=== PATIENT | female | born 1950 | race Caucasian/White ===

== ENCOUNTER 2020-07-20 11:05 | Outpatient (REF) | payer MEDICARE, OTHER, SELFPAY ==
[2020-07-20 13:30] LABS: MANUAL DIFF FLAG NO
[2020-07-20 13:41] LABS: Basophils Absolute Auto 0.1 X10*3/uL (0.0-0.2); Basophils Percent Auto 0.8 % (0-2); Eosinophils Absolute Auto 0.5 X10*3/uL (0.0-0.4); Eosinophils Percent Auto 6.9 % (0-4); Hematocrit 43.8 % (37-47); Hemoglobin 14.5 g/dl (12.0-16.0); Imm Gran Abs Auto 0.03 X10*3/uL (0.00-0.03); Imm Gran Pct Auto 0.4 % (0.0-0.4); Lymphocytes Percent Auto 27.2 % (20-40); Mean Corpuscular HGB Conc 33.1 g/dl (31.0-35.0); Mean Corpuscular Volume 99.5 fL (80-98); Mean Platelet Volume 9.2 fL (9.4-12.3); Monocytes Percent Auto 12.7 % (2-11); Neutrophils Absolute Auto 3.9 X10*3/uL (2.0-8.3); Platelet Count 285 X10*3/uL (160-400); White Blood Count 7.5 X10*3/uL (4.8-10.8)
[2020-07-20 14:15] LABS: Alanine Aminotransferase 23 U/L (0-31); Albumin Level 4.4 g/dL (3.5-5.0); Alkaline Phosphatase 83 U/L (39-117); Anion Gap 12 (12-20); Aspartate Amino Transferase 21 U/L (5-31); Bilirubin Total 1.6 mg/dL (0.0-1.0); Blood Urea Nitrogen 25 mg/dL (9-16); Calcium 9.7 mg/dL (8.4-10.2); Carbon Dioxide 29 mmol/L (22-29); Chloride 104 mmol/L (96-108); Cholesterol 201 mg/dL; Estimated Glomerular Filt Rate > 60; Glucose Fasting 95 mg/dL (60-99); HDL Cholesterol 70 mg/dL; LDL Cholesterol Calculated 104 mg/dl; Potassium 4.2 mmol/L (3.3-5.1); Sodium 141 mmol/L (135-145); Total Protein 7.3 g/dL (6.5-8.0); Triglycerides 135 mg/dL
== END 2020-07-20 11:06 | disposition home or self-care (01) ==
LOC: HO.10HDL 11:05
PROVIDERS: Visit Provider Internal Medicine Medical Oncology
DX: I10 Essential (primary) hypertension (principal); E78.2 Mixed hyperlipidemia
CPT/HCPCS: 36415; 80053; 80061; 85025

== ENCOUNTER 2020-10-20 09:47 | Outpatient (REF) | payer MEDICARE, OTHER, SELFPAY ==
[2020-10-20 10:15] LABS: MANUAL DIFF FLAG NO
[2020-10-20 10:21] LABS: Basophils Absolute Auto 0.1 X10*3/uL (0.0-0.2); Basophils Percent Auto 0.9 % (0-2); Eosinophils Absolute Auto 0.5 X10*3/uL (0.0-0.4); Eosinophils Percent Auto 7.8 % (0-4); Hematocrit 43.8 % (37-47); Hemoglobin 14.5 g/dl (12.0-16.0); Imm Gran Abs Auto 0.03 X10*3/uL (0.00-0.03); Imm Gran Pct Auto 0.4 % (0.0-0.4); Lymphocytes Absolute Auto 1.8 X10*3/uL (1.2-4.9); Lymphocytes Percent Auto 25.7 % (20-40); Mean Corpuscular HGB Conc 33.1 g/dl (31.0-35.0); Mean Corpuscular Hemoglobin 32.4 pg (27.0-33.0); Mean Corpuscular Volume 97.8 fL (80-98); Mean Platelet Volume 8.7 fL (9.4-12.3); Monocytes Absolute Auto 0.9 X10*3/uL (0.1-1.2); Monocytes Percent Auto 12.9 % (2-11); Neutrophils Absolute Auto 3.6 X10*3/uL (2.0-8.3); Neutrophils Percent Auto 52.3 % (45-73); Platelet Count 281 X10*3/uL (160-400); Red Blood Count 4.48 X10*6/uL (4.20-5.50); Red Cell Distribution Width 11.9 % (11.0-16.0); White Blood Count 6.9 X10*3/uL (4.8-10.8)
[2020-10-20 10:46] LABS: Alanine Aminotransferase 31 U/L (0-31); Albumin Level 4.3 g/dL (3.5-5.0); Alkaline Phosphatase 69 U/L (39-117); Anion Gap 13 (12-20); Aspartate Amino Transferase 27 U/L (5-31); Bilirubin Total 1.4 mg/dL (0.0-1.0); Blood Urea Nitrogen 18 mg/dL (9-16); Calcium 9.3 mg/dL (8.4-10.2); Carbon Dioxide 29 mmol/L (22-29); Chloride 104 mmol/L (96-108); Cholesterol 221 mg/dL; Estimated Glomerular Filt Rate > 60; Glucose Fasting 109 mg/dL (60-99); HDL Cholesterol 68 mg/dL; LDL Cholesterol Calculated 128 mg/dl; Sodium 142 mmol/L (135-145); Total Protein 7.3 g/dL (6.5-8.0); Triglycerides 125 mg/dL
== END 2020-10-20 09:48 | disposition home or self-care (01) ==
LOC: HO.10HDL 09:47
PROVIDERS: PCP Internal Medicine Medical Oncology; Visit Provider Internal Medicine Medical Oncology
DX: I10 Essential (primary) hypertension (principal); E78.2 Mixed hyperlipidemia; R63.6 Underweight
CPT/HCPCS: 36415; 80053; 80061; 85025

== ENCOUNTER 2020-11-03 10:18 | Outpatient (REF) | payer MEDICARE, OTHER, SELFPAY ==
--- NOTE | ~2020-11-03 | MM_ITS ---
EXAMINATION: MM SCREENING DIGITAL BREAST TOMOSYNTHESIS, BILATERAL CLINICAL INFORMATION: Screening. Asymptomatic. The lifetime risk of breast cancer based on the Tyrer-Cuzick Model is 7%. COMPARISON: Mammography: 10/29/2019, 10/23/2018, 10/18/2017, 10/10/2017 TECHNIQUE: Digital breast tomosynthesis is performed in both the craniocaudal and mediolateral oblique views along with computer-aided detection (CAD). Synthesized 2D images are generated from the tomosynthesis. FINDINGS: There are scattered areas of fibroglandular density (ACR BI-RADS breast composition Category b). There are no significant masses, abnormal calcifications, or other abnormalities. Parenchymal pattern is similar to prior studies. There is no developing density. Scattered punctate calcifications are similar to prior exams. The axilla and skin contours are unremarkable. No significant changes. MM/MM tomosynthesis screening BI IMPRESSION: No mammographic evidence of malignancy. ASSESSMENT: BI-RADS 2: Benign RECOMMENDATION: Routine annual mammography screening. This patient's information was entered into a reminder system with a target due date for their next mammogram.
== END 2020-11-03 10:19 | disposition home or self-care (01) ==
LOC: HO.MAMMO 10:18
PROVIDERS: Visit Provider Internal Medicine Medical Oncology
DX: Z12.31 Encounter for screening mammogram for malignant neoplasm of breast (principal)
CPT/HCPCS: 77063; 77067

== ENCOUNTER 2021-08-10 08:38 | Outpatient (REF) | payer MEDICARE, OTHER, SELFPAY ==
[2021-08-10 11:45] LABS: MANUAL DIFF FLAG NO
[2021-08-10 11:50] LABS: Basophils Absolute Auto 0.1 X10*3/uL (0.0-0.2); Basophils Percent Auto 0.8 % (0-2); Eosinophils Absolute Auto 0.4 X10*3/uL (0.0-0.4); Eosinophils Percent Auto 6.3 % (0-4); Hematocrit 42.2 % (37.0-47.0); Hemoglobin 14.1 g/dl (12.0-16.0); Imm Gran Abs Auto 0.03 X10*3/uL (0.00-0.03); Imm Gran Pct Auto 0.5 % (0.0-0.4); Lymphocytes Absolute Auto 1.9 X10*3/uL (1.2-4.9); Lymphocytes Percent Auto 29.1 % (20-40); Mean Corpuscular HGB Conc 33.4 g/dl (31.0-35.0); Mean Corpuscular Hemoglobin 33.6 pg (27.0-33.0); Mean Corpuscular Volume 100.5 fL (80.0-98.0); Monocytes Absolute Auto 0.9 X10*3/uL (0.1-1.2); Monocytes Percent Auto 14.8 % (2-11); Neutrophils Absolute Auto 3.1 x10*3/uL (2.0-8.3); Neutrophils Percent Auto 48.5 % (45-73); Platelet Count 270 X10*3/uL (160-400); Red Cell Distribution Width 12.1 % (11.0-16.0); White Blood Count 6.4 X10*3/uL (4.8-10.8)
[2021-08-10 12:12] LABS: Alanine Aminotransferase 18 U/L (0-31); Albumin Level 4.2 g/dL (3.5-5.0); Alkaline Phosphatase 82 U/L (39-117); Anion Gap 12 (12-20); Aspartate Amino Transferase 21 U/L (5-31); Bilirubin Total 1.2 mg/dL (0.0-1.0); Blood Urea Nitrogen 12 mg/dL (9-16); Carbon Dioxide 27 mmol/L (22-29); Chloride 106 mmol/L (96-108); Cholesterol 185 mg/dL; Estimated Glomerular Filt Rate > 60; Glucose Fasting 107 mg/dL (60-99); HDL Cholesterol 62 mg/dL; LDL Cholesterol Calculated 105 mg/dl; Sodium 141 mmol/L (135-145); Triglycerides 93 mg/dL
== END 2021-08-10 08:39 | disposition home or self-care (01) ==
LOC: HO.HMGCLDS 08:38
PROVIDERS: PCP Internal Medicine Medical Oncology; Visit Provider Internal Medicine Medical Oncology
DX: I10 Essential (primary) hypertension (principal); E78.2 Mixed hyperlipidemia; R63.6 Underweight
CPT/HCPCS: 36415; 80053; 80061; 85025

== ENCOUNTER 2021-11-05 09:47 | Outpatient (REF) | payer MEDICARE, OTHER, SELFPAY ==
--- NOTE | ~2021-11-05 | MM_ITS ---
EXAMINATION: MM SCREENING DIGITAL BREAST TOMOSYNTHESIS, BILATERAL CLINICAL INFORMATION: Screening. Asymptomatic. The lifetime risk of breast cancer based on the Tyrer-Cuzick Model is 6%. COMPARISON: Mammography: 11/03/2020, 10/29/2019, 10/23/2018, 10/10/2017 TECHNIQUE: Digital breast tomosynthesis is performed in both the craniocaudal and mediolateral oblique views along with computer-aided detection (CAD). Synthesized 2D images are generated from the tomosynthesis. FINDINGS: There are scattered areas of fibroglandular density (ACR BI-RADS breast composition Category b). There are no significant masses, abnormal calcifications, or other abnormalities. Parenchymal pattern is similar to prior studies. There is no developing density or architectural abnormality. The axilla and skin contours are unremarkable. No significant changes. MM/MM tomosynthesis screening BI IMPRESSION: No mammographic evidence of malignancy. ASSESSMENT: BI-RADS 1: Negative RECOMMENDATION: Routine annual mammography screening. This patient's information was entered into a reminder system with a target due date for their next mammogram.
== END 2021-11-05 09:48 | disposition home or self-care (01) ==
LOC: HO.MAMMO 09:47
PROVIDERS: PCP Internal Medicine Medical Oncology; Visit Provider Internal Medicine Medical Oncology
DX: Z12.31 Encounter for screening mammogram for malignant neoplasm of breast (principal)
CPT/HCPCS: 77063; 77067

== ENCOUNTER 2022-10-12 10:04 | Outpatient (REF) | payer MEDICARE, OTHER, SELFPAY ==
[2022-10-12 11:21] LABS: MANUAL DIFF FLAG NO
[2022-10-12 11:32] LABS: Basophils Absolute Auto 0.1 X10*3/uL (0.0-0.2); Eosinophils Absolute Auto 0.5 X10*3/uL (0.0-0.4); Eosinophils Percent Auto 5.6 % (0-4); Hematocrit 41.6 % (37.0-47.0); Hemoglobin 14.1 g/dl (12.0-16.0); Imm Gran Abs Auto 0.04 X10*3/uL (0.00-0.03); Imm Gran Pct Auto 0.5 % (0.0-0.4); Lymphocytes Absolute Auto 1.9 X10*3/uL (1.2-4.9); Lymphocytes Percent Auto 22.9 % (20-40); Mean Corpuscular HGB Conc 33.9 g/dl (31.0-35.0); Mean Corpuscular Volume 100.2 fL (80.0-98.0); Mean Platelet Volume 9.1 fL (9.4-12.3); Monocytes Absolute Auto 1.1 X10*3/uL (0.1-1.2); Monocytes Percent Auto 13.3 % (2-11); Neutrophils Absolute Auto 4.6 x10*3/uL (2.0-8.3); Neutrophils Percent Auto 56.7 % (45-73); Platelet Count 254 X10*3/uL (160-400); Red Blood Count 4.15 X10*6/uL (4.20-5.50); Red Cell Distribution Width 12.4 % (11.0-16.0); White Blood Count 8.2 X10*3/uL (4.8-10.8)
[2022-10-12 12:32] LABS: Alanine Aminotransferase 23 U/L (0-31); Albumin Level 4.3 g/dL (3.5-5.0); Alkaline Phosphatase 73 U/L (39-117); Anion Gap 14 (12-20); Aspartate Amino Transferase 22 U/L (5-31); Bilirubin Total 1.7 mg/dL (0.0-1.0); Blood Urea Nitrogen 20 mg/dL (9-16); Calcium 9.3 mg/dL (8.4-10.2); Carbon Dioxide 26 mmol/L (22-29); Chloride 105 mmol/L (96-108); Cholesterol 206 mg/dL; Estimated Glomerular Filt Rate > 60; Glucose Random 90 mg/dL (60-115); HDL Cholesterol 75 mg/dL; LDL Cholesterol Calculated 104 mg/dl; Potassium 3.5 mmol/L (3.3-5.1); Sodium 141 mmol/L (135-145); Total Protein 7.6 g/dL (6.5-8.0); Triglycerides 137 mg/dL
== END 2022-10-12 10:05 | disposition home or self-care (01) ==
LOC: HO.WFDLDS 10:04
PROVIDERS: Visit Provider Internal Medicine Medical Oncology
DX: E78.2 Mixed hyperlipidemia (principal); I10 Essential (primary) hypertension; R63.6 Underweight
CPT/HCPCS: 36415; 80053; 80061; 85025

== ENCOUNTER 2022-11-07 08:47 | Outpatient (REF) | payer MEDICARE, OTHER, SELFPAY | END 2022-11-07 08:48 | disposition home or self-care (01) | LOC: HO.MAMMO 08:47 | PROVIDERS: PCP Internal Medicine Medical Oncology; Visit Provider Internal Medicine Medical Oncology | DX: Z12.31 Encounter for screening mammogram for malignant neoplasm of breast (principal) | CPT/HCPCS: 77063; 77067 ==

== ENCOUNTER → 2022-11-07 09:00 | Outpatient (BNV) | payer MEDICARE, OTHER, SELFPAY | PROVIDERS: PCP Internal Medicine Medical Oncology; Visit Provider Radiology Diagnostic Radiology | DX: Z12.31 Encounter for screening mammogram for malignant neoplasm of breast (principal) | CPT/HCPCS: 77063; 77067 ==

== ENCOUNTER 2023-07-26 09:47 | Outpatient (REF) | payer MEDICARE, OTHER, SELFPAY ==
[2023-07-26 11:46] LABS: MANUAL DIFF FLAG NO
[2023-07-26 11:49] LABS: Basophils Absolute Auto 0.1 X10*3/uL (0.0-0.2); Basophils Percent Auto 0.8 % (0-2); Eosinophils Absolute Auto 0.5 X10*3/uL (0.0-0.4); Hematocrit 43.7 % (37.0-47.0); Hemoglobin 14.7 g/dl (12.0-16.0); Imm Gran Abs Auto 0.04 X10*3/uL (0.00-0.03); Imm Gran Pct Auto 0.6 % (0.0-0.4); Lymphocytes Absolute Auto 1.7 X10*3/uL (1.2-4.9); Lymphocytes Percent Auto 23.5 % (20-40); Mean Corpuscular HGB Conc 33.6 g/dl (31.0-35.0); Mean Corpuscular Hemoglobin 33.3 pg (27.0-33.0); Mean Corpuscular Volume 99.1 fL (80.0-98.0); Mean Platelet Volume 9.1 fL (9.4-12.3); Monocytes Percent Auto 13.8 % (2-11); Neutrophils Absolute Auto 3.9 x10*3/uL (2.0-8.3); Neutrophils Percent Auto 54.3 % (45-73); Platelet Count 285 X10*3/uL (160-400); Red Blood Count 4.41 X10*6/uL (4.20-5.50); Red Cell Distribution Width 11.7 % (11.0-16.0); White Blood Count 7.1 X10*3/uL (4.8-10.8)
[2023-07-26 12:51] LABS: Alanine Aminotransferase 24 U/L (0-31); Albumin Level 4.3 g/dL (3.5-5.0); Alkaline Phosphatase 74 U/L (39-117); Anion Gap 15 (12-20); Aspartate Amino Transferase 26 U/L (5-31); Bilirubin Total 1.8 mg/dL (0.0-1.0); Blood Urea Nitrogen 17 mg/dL (9-16); Calcium 9.6 mg/dL (8.4-10.2); Carbon Dioxide 28 mmol/L (22-29); Chloride 103 mmol/L (96-108); Cholesterol 198 mg/dL (<200); Estimated Glomerular Filt Rate > 60; Glucose Fasting 81 mg/dL (60-99); HDL Cholesterol 62 mg/dL (>40); LDL Cholesterol Calculated 104 mg/dL (<100); Potassium 3.6 mmol/L (3.3-5.1); Sodium 142 mmol/L (135-145); Total Protein 7.5 g/dL (6.5-8.0); Triglycerides 164 mg/dL (<150)
== END 2023-07-26 09:48 | disposition home or self-care (01) ==
LOC: HO.WFDLDS 09:47
PROVIDERS: Visit Provider Internal Medicine Medical Oncology
DX: I10 Essential (primary) hypertension (principal); E78.2 Mixed hyperlipidemia; R63.6 Underweight
CPT/HCPCS: 36415; 80053; 80061; 85025

== ENCOUNTER 2023-11-06 10:26 | Outpatient (REF) | payer MEDICARE, OTHER, SELFPAY ==
[2023-11-06 14:27] LABS: MANUAL DIFF FLAG NO
[2023-11-06 14:42] LABS: Basophils Absolute Auto 0.1 X10*3/uL (0.0-0.2); Basophils Percent Auto 0.7 % (0-2); Eosinophils Absolute Auto 0.6 X10*3/uL (0.0-0.4); Eosinophils Percent Auto 7.7 % (0-4); Hematocrit 44.7 % (37.0-47.0); Hemoglobin 14.6 g/dl (12.0-16.0); Imm Gran Abs Auto 0.05 X10*3/uL (0.00-0.03); Imm Gran Pct Auto 0.7 % (0.0-0.4); Lymphocytes Absolute Auto 2.1 X10*3/uL (1.2-4.9); Lymphocytes Percent Auto 27.7 % (20-40); Mean Corpuscular HGB Conc 32.7 g/dl (31.0-35.0); Mean Corpuscular Hemoglobin 33.1 pg (27.0-33.0); Mean Corpuscular Volume 101.4 fL (80.0-98.0); Mean Platelet Volume 9.2 fL (9.4-12.3); Monocytes Percent Auto 13.3 % (2-11); Neutrophils Absolute Auto 3.7 x10*3/uL (2.0-8.3); Neutrophils Percent Auto 49.9 % (45-73); Platelet Count 268 X10*3/uL (160-400); Red Blood Count 4.41 X10*6/uL (4.20-5.50); Red Cell Distribution Width 12.4 % (11.0-16.0); White Blood Count 7.5 X10*3/uL (4.8-10.8)
[2023-11-06 15:07] LABS: Alanine Aminotransferase 33 U/L (0-31); Albumin Level 4.3 g/dL (3.5-5.0); Alkaline Phosphatase 79 U/L (39-117); Anion Gap 16 (12-20); Aspartate Amino Transferase 39 U/L (5-31); Bilirubin Total 1.6 mg/dL (0.0-1.0); Blood Urea Nitrogen 19 mg/dL (9-16); Calcium 10.5 mg/dL (8.4-10.2); Carbon Dioxide 27 mmol/L (22-29); Chloride 105 mmol/L (96-108); Cholesterol 173 mg/dL (<200); Estimated Glomerular Filt Rate > 60; Glucose Fasting 92 mg/dL (60-99); HDL Cholesterol 62 mg/dL (>40); LDL Cholesterol Calculated 78 mg/dL (<100); Potassium 3.6 mmol/L (3.3-5.1); Sodium 144 mmol/L (135-145); Total Protein 7.6 g/dL (6.5-8.0); Triglycerides 167 mg/dL (<150)
[2023-11-06 15:10] LABS: Vitamin D 25-OH Total 38.4 ng/mL (>30)
== END 2023-11-06 10:27 | disposition home or self-care (01) ==
LOC: HO.WFDLDS 10:26
PROVIDERS: Visit Provider Internal Medicine Medical Oncology
DX: I10 Essential (primary) hypertension (principal); E78.2 Mixed hyperlipidemia; R63.6 Underweight; E55.9 Vitamin D deficiency, unspecified
CPT/HCPCS: 36415; 80053; 80061; 82306; 85025

== ENCOUNTER 2023-11-14 09:07 | Outpatient (REF) | payer MEDICARE, OTHER, SELFPAY ==
--- NOTE | ~2023-11-14 | MM_ITS ---
EXAMINATION: BONE DENSITOMETRY CLINICAL INDICATION: Osteopenia. COMPARISON: This is the patient's baseline examination. TECHNIQUE: Using a [employer] DXA System (software version: 13.1) manufactured by [employer], dual-energy x-ray absorptiometry was performed of the lumbar spine and left hip. The images are of good technical quality. Summary results are attached. FINDINGS: LEFT FEMUR, NECK: BMD 0.598 g/cm2, Z-score -1.0, T-score -3.2, osteoporosis. LEFT FEMUR, TOTAL: BMD 0.570 g/cm2, Z-score -1.5, T-score -3.5, osteoporosis. AP SPINE L1-L4: BMD 0.687 g/cm2, Z-score -2.0, T-score -4.1, osteoporosis. IDENTIFIED RISK FACTORS: Menopause, hysterectomy, bilateral oophorectomy. HISTORY OF FRACTURE: None listed. MEDICATIONS: Calcium. MM/XR DEXA axial skeleton IMPRESSION: 1. DIAGNOSIS: Osteoporosis based on the lowest T-score value of -4.1 in the lumbar spine applying World Health Organization criteria. 2. 10-YEAR FRACTURE RISK PREDICTION, FRAX: According to the guidelines, FRAX calculation should only be performed on patients in the osteopenia bone density category. Therefore, FRAX was not performed on this patient. 3. Treatment Recommendations: NOF guidelines recommend consideration for treatment in postmenopausal women and men age 50 and older presenting with the following: -A hip or vertebral (clinical or morphometric) fracture. -T-score less than or equal to -2.5 at the femoral neck or spine after appropriate evaluation to exclude secondary causes. -Low bone mass at the hip or spine and a 10-year fracture probability by FRAX of greater than or equal to 3% for hip fracture or greater than or equal to 20% for major osteoporotic fracture based on the [place] adapted WHO algorithm. 4. Other Recommendations: All treatment decisions require clinical judgment and consideration of individual patient factors, including patient preferences, comorbidities, previous drug use, risk factors not captured in the FRAX model (e.g. frailty, falls, vitamin D deficiency, increased bone turnover, interval significant decline in bone density) and possible under or overestimation of fracture risk by FRAX. Additional medical evaluation for secondary cause of low bone mineral density may be appropriate. FUTURE SCAN RECOMMENDATION: People with diagnosed cases of osteoporosis or at high risk for fracture should have regular bone mineral density tests. For patients eligible for Medicare, routine testing is allowed once every 2 years. The testing frequency can be increased to one year for patients who have rapidly progressing disease, those who are receiving or discontinuing medical therapy to restore bone mass, or have additional risk factors. Electronically signed by: Jasson Last MD 11/15/2023 03:08 PM LUCIANO RP
--- NOTE | ~2023-11-14 | MM_ITS ---
EXAMINATION: MM SCREENING DIGITAL BREAST TOMOSYNTHESIS, BILATERAL CLINICAL INFORMATION: Screening. Asymptomatic. COMPARISON: Mammography: Comparison is made with available priors TECHNIQUE: Digital breast mammography with tomosynthesis is performed in both the craniocaudal and mediolateral oblique views along with computer-aided detection (CAD). FINDINGS: The breasts are heterogeneously dense, which may obscure small masses (ACR BI-RADS breast composition Category c). Postsurgical changes in the right breast are stable. There are no significant masses, abnormal calcifications, or other abnormalities. MM/MM tomosynthesis screening BI IMPRESSION: No mammographic evidence of malignancy. ASSESSMENT: BI-RADS BI-RADS 2 - Benign Findings RECOMMENDATION: Routine annual mammography screening. 1 year F/U This examination should not preclude the clinical evaluation of a suspicious palpable abnormality. This patient's information was entered into a reminder system with a target due date for their next mammogram. Electronically signed by: Merry Bowers DO 11/27/2023 04:07 PM EDT
== END 2023-11-14 09:08 | disposition home or self-care (01) ==
LOC: HO.MAMMO 09:07
PROVIDERS: PCP Internal Medicine Medical Oncology; Visit Provider Internal Medicine Medical Oncology
DX: Z12.31 Encounter for screening mammogram for malignant neoplasm of breast (principal); Z13.820 Encounter for screening for osteoporosis; Z78.0 Asymptomatic menopausal state; M85.89 Other specified disorders of bone density and structure, multiple sites
CPT/HCPCS: 77063; 77067; 77080

== ENCOUNTER → 2023-11-14 09:30 | Outpatient (BNV) | payer MEDICARE, OTHER, SELFPAY | PROVIDERS: PCP Internal Medicine Medical Oncology; Visit Provider Internal Medicine | DX: Z12.31 Encounter for screening mammogram for malignant neoplasm of breast (principal) | CPT/HCPCS: 77063; 77067 ==

== ENCOUNTER 2024-07-30 09:48 | Outpatient (REF) | payer MEDICARE, OTHER, SELFPAY ==
--- OUTSIDE RECORDS SUMMARY | 2024-07-30 11:00 | XMS_ITS | Patient Health Record ---
Author Organization Yung Delgado III, MD Address [address] [place] [address] [address] [place] [address] Care Team Providers Care Learn To Swim Instructor Name Role Phone Yung Delgado Primary Care Provider Allergies Allergen (clinical drug ingredient) Drug/Non Drug Allergy documented on EMR Reaction Allergy Type Onset Date Status No Known Drug Allergy Unknown Drug Allergy Active Results Component Value Reference Range Notes URINE DIP STICK Reviewed date:08/01/2023 02:15:35 PM Interpretation: Performing Lab: Notes/Report: SG 1.020 1.005 - 1.025 pH 6.0 5.0 - 9.0 GENOVEVA 70 Negative - NIT Negative Negative - PRO 15 Negative - Trace GLU Negative Negative - KET Negative Negative - UBG 0.2 0.1 - 1.8 MIGUEL ANGEL Negative 0.2 - 1.3 BLD Negative Negative - Complete Blood Count Auto Di ff Reviewed date:11/12/2023 07:29:20 AM Interpretation: Performing Lab:[facility], [address] [place] [phone] Notes/Report: White Blood Count 7.5 4.8-10.8 X10*3/uL Red Blood Count 4.41 4.20-5.50 X10*6/uL Hemoglobin 14.6 12.0-16.0 g/dl Hematocrit 44.7 37.0-47.0 % Mean Corpuscular Volume 101.4 80.0-98.0 fL Mean Corpuscular Hemoglobin 33.1 27.0-33.0 pg Mean Corpuscular HGB Conc 32.7 31.0-35.0 g/dl Red Cell Distribution Width 12.4 11.0-16.0 % Platelet Count 268 160-400 X10*3/uL Mean Platelet Volume 9.2 9.4-12.3 fL Neutrophils Percent Auto 49.9 45-73 % Imm Gran Pct Auto 0.7 0.0-0.4 % Lymphocytes Percent Auto 27.7 20-40 % Monocytes Percent Auto 13.3 2-11 % Eosinophils Percent Auto 7.7 0-4 % Basophils Percent Auto 0.7 0-2 % NRBC Pct Auto 0.0 0.0-0.2 /100WBC Neutrophils Absolute Auto 3.7 2.0-8.3 x10*3/uL Imm Gran Abs Auto 0.05 0.00-0.03 X10*3/uL Lymphocytes Absolute Auto 2.1 1.2-4.9 X10*3/uL Monocytes Absolute Auto 1.0 0.1-1.2 X10*3/uL Eosinophils Absolute Auto 0.6 0.0-0.4 X10*3/uL Basophils Absolute Auto 0.1 0.0-0.2 X10*3/uL NRBC Abs Auto 0.000 0.0-0.012 X10*3/uL Comprehensive [place]. Panel Fa st Reviewed date:11/12/2023 07:29:20 AM Interpretation: Performing Lab:[facility], [address] [place] [phone] Notes/Report: Sodium 144 135-145 mmol/L Potassium 3.6 3.3-5.1 mmol/L Chloride 105 96-108 mmol/L Carbon Dioxide 27 22-29 mmol/L Anion Gap 16 12-20 Blood Urea Nitrogen 19 9-16 mg/dL Creatinine 0.86 0.5-1.4 mg/dL Estimated Glomerular Filt Rate > 60 NOTE: For -Finnish individuals, multiply the result by 1.210. Chronic Kidney Disease: Estimated GFR < 60 mL/min/1.73m2 Severe Kidney Disease: Estimated GFR < 15 mL/min/1.73m2 Glucose Fasting 92 60-99 mg/dL Calcium 10.5 8.4-10.2 mg/dL Bilirubin Total 1.6 0.0-1.0 mg/dL Aspartate Amino Transferase 39 5-31 U/L Alanine Aminotransferase 33 0-31 U/L Total Protein 7.6 6.5-8.0 g/dL Albumin Level 4.3 3.5-5.0 g/dL Alkaline Phosphatase 79 39-117 U/L Lipid Panel Reviewed date:11/12/2023 07:29:20 AM Interpretation: Performing Lab:[facility], [address] [place] [phone] Notes/Report: Triglycerides 167 <150 mg/dL Desirable Triglyceride: less than 150 mg/dL Borderline High Triglyceride 150-199 mg/dL High Triglyceride: 200-499 mg/dL Very High Triglyceride: greater than or equal to 5OO mg/dL Cholesterol 173 <200 mg/dL Desirable Cholesterol: less than 200 mg/dL Borderline High Cholesterol: 200-239 mg/dL High Cholesterol: greater than 239 mg/dL LDL Cholesterol Calculated 78 <100 mg/dL Desirable LDL: less than 100 mg/dL Near Optimal/Above Optimal LDL: 110-129 mg/dL Borderline High LDL: 130-159 mg/dL High LDL: 160-189 mg/dL Very High LDL: greater than or equal to 190 mg/dL HDL Cholesterol 62 >40 mg/dL Desirable HDL: greater than 40 mg/dL Note: This HDL assay may give artificially low results in patients with liver disease. Vitamin D 25-OH Total Reviewed date:11/12/2023 07:29:20 AM Interpretation: Performing Lab:[facility], [address] [place] [phone] Notes/Report: Vitamin D 25-OH Total 38.4 >30 ng/mL Health Based Reference Values* < 20 ng/mL Deficient 20-30 ng/mL Insufficient > 30 ng/mL Sufficient *Julio DOTY. N Engl J Med. 2007;357:266-280 Care must be taken in interpreting Vitamin D results from different laboratories and methodologies. Published data demonstrated that results from patients undergoing hemodialysis may show a negative bias when tested with various automated 25-OH vitamin D assays when compared to LC-MS/MS. When testing samples from patients whose predominant form of Vitamin D is Vitamin D2, such as patients receiving Vitamin D2 supplementation, results that are subtherapeutic should be confirmed with another method such as LC-MS/MS. MM tomosynthesis screening B I Reviewed date:03/05/2024 04:06:42 PM Interpretation: Performing Lab: Notes/Report: [address] [place] [address] Mammography Report Signed Patient: Dyan Wang MR#: [id number] : 1950 Acct:[id number] Age/Sex: 73 / F ADM Date: 11/14/23 Loc: HO.MAMMO Attending Dr: Yung Delgado MD Ordering Physician: Yung Delgado MD Results: 2Benign Findings Date of Service: 11/14/23 Follow Up: 1 Year From Orig [facility] Mammogram Procedure(s): MM tomosynthesis screening BI Accession Number(s): [id number] cc: Yung Delgado MD EXAMINATION: MM SCREENING DIGITAL BREAST TOMOSYNTHESIS, BILATERAL CLINICAL INFORMATION: Screening. Asymptomatic. COMPARISON: Mammography: Comparison is made with available priors TECHNIQUE: Digital breast mammography with tomosynthesis is performed in both the craniocaudal and mediolateral oblique views along with computer-aided detection (CAD). FINDINGS: The breasts are heterogeneously dense, which may obscure small masses (ACR BI-RADS breast composition Category c). Postsurgical changes in the right breast are stable. There are no significant masses, abnormal calcifications, or other abnormalities. MM/MM tomosynthesis screening BI IMPRESSION: No mammographic evidence of malignancy. ASSESSMENT: BI-RADS BI-RADS 2 - Benign Findings RECOMMENDATION: Routine annual mammography screening. 1 year F/U This examination should not preclude the clinical evaluation of a suspicious palpable abnormality. This patient's information was entered into a reminder system with a target due date for their next mammogram. Electronically signed by: Merry Bowers DO 11/27/2023 04:07 PM EDT Dictated By: Merry Bowers DO Signed By: <Electronically signed by Merry Bowers DO in OV> 11/27/23 1607 DD/ 0920 TD/TT: 11/14/23 0935 Distribution Designer: [address] [place] [address] Mammography Report Signed Patient: Dyan Wang MR#: [id number] : 1950 Acct:[id number] Age/Sex: 73 / F ADM Date: 11/14/23 Loc: HO.MAMMO Attending Dr: Yung Delgado MD Ordering Physician: Yung Delgado MD Results: 2Benign Findings Date of Service: 11/14/23 Follow Up: 1 Year From Orig ina Mammogram Procedure(s): MM tomosynthesis screening BI Accession Number(s): [id number] cc: Yung Delgado MD EXAMINATION: MM SCREENING DIGITAL BREAST TOMOSYNTHESIS, BILATERAL CLINICAL INFORMATION: Screening. Asymptomatic. COMPARISON: Mammography: Compari son is made with available priors TECHNIQUE: Digital breast mammography with tomosynthesis is performed in both the craniocaudal and mediolateral oblique views along with computer-aided detection (CAD). FINDINGS: The breasts are heterogeneously dense, which may obscure small masses (ACR BI-RADS breast composition Category c). Postsurgical changes in the right breast are stable. There are no significant masses, abnormal calcifications, or other abnormalities. MM/MM tomosynthesis screening BI IMPRESSION: No mammographic evidence of malignancy. ASSESSMENT: BI-RADS BI-RADS 2 - Benign Findings RECOMMENDATION: Routine annual mammography screening. 1 year F/U This examination isa uld not preclude the clinical evaluation of a suspicious palpable abnormality. This patient's information was entered into a reminder system with a target due date for their next mammogram. Electronically mara d by: Merry Bowers DO 11/27/2023 04:07 PM EDT Dictated By: Merry Bowers DO Signed By: <Electronically signed by Merry Bowers DO in OV> 11/27/23 1607 DD/ 0920 TD/TT: 11/14/23 0935 Distribution Designer: XR DEXA axial skeleton Reviewed date:03/05/2024 04:06:42 PM Interpretation: Performing Lab: Notes/Report: [facility] [address] [place] [address] [place] [address] Mammography Report Signed Patient: Dyan Wang MR#: [id number] : 1950 Acct:[id number] Age/Sex: 73 / F ADM Date: 11/14/23 Loc: HO.MAMMO Attending Dr: Yung Delgado MD Ordering Physician: Yung Delgado MD Results: Date of Service: 11/14/23 Follow Up: Procedure(s): XR DEXA axial skeleton Accession Number(s): [id number] cc: Yung Delgado MD EXAMINATION: BONE DENSITOMETRY CLINICAL INDICATION: Osteopenia. COMPARISON: This is the patient's baseline examination. TECHNIQUE: Using a [email or web address] DXA System (software version: 13.1) manufactured by [employer], dual-energy x-ray absorptiometry was performed of the lumbar spine and left hip. The images are of good technical quality. Summary results are attached. FINDINGS: LEFT FEMUR, NECK: BMD 0.598 g/cm2, Z-score -1.0, T-score -3.2, osteoporosis. LEFT FEMUR, TOTAL: BMD 0.570 g/cm2, Z-score -1.5, T-score -3.5, osteoporosis. AP SPINE L1-L4: BMD 0.687 g/cm2, Z-score -2.0, T-score -4.1, osteoporosis. IDENTIFIED RISK FACTORS: Menopause, hysterectomy, bilateral oophorectomy. HISTORY OF FRACTURE: None listed. MEDICATIONS: Calcium. MM/XR DEXA axial skeleton IMPRESSION: 1. DIAGNOSIS: Osteoporosis based on the lowest T-score value of -4.1 in the lumbar spine applying World Health Organization criteria. 2. 10-YEAR FRACTURE RISK PREDICTION, FRAX: According to the guidelines, FRAX calculation should only be performed on patients in the osteopenia bone density category. Therefore, FRAX was not performed on this patient. 3. Treatment Recommendations: NOF guidelines recommend consideration for treatment in postmenopausal women and men age 50 and older presenting with the following: -A hip or vertebral (clinical or morphometric) fracture. -T-score less than or equal to -2.5 at the femoral neck or spine after appropriate evaluation to exclude secondary causes. -Low bone mass at the hip or spine and a 10-year fracture probability by FRAX of greater than or equal to 3% for hip fracture or greater than or equal to 20% for major osteoporotic fracture based on the [place] adapted WHO algorithm. 4. Other Recommendations: All treatment decisions require clinical judgment and consideration of individual patient factors, including patient preferences, comorbidities, previous drug use, risk factors not captured in the FRAX model (e.g. frailty, falls, vitamin D deficiency, increased bone turnover, interval significant decline in bone density) and possible under or overestimation of fracture risk by FRAX. Additional medical evaluation for secondary cause of low bone mineral density may be appropriate. FUTURE SCAN RECOMMENDATION: People with diagnosed cases of osteoporosis or at high risk for fracture should have regular bone mineral density tests. For patients eligible for Medicare, routine testing is allowed once every 2 years. The testing frequency can be increased to one year for patients who have rapidly progressing disease, those who are receiving or discontinuing medical therapy to restore bone mass, or have additional risk factors. Electronically signed by: Jasson Last MD 11/15/2023 03:08 PM EDT Dictated By: Jasson Last MD Signed By: <Electronically signed by Jasson Last MD in OV> 11/15/23 1508 DD/ 0945 TD/TT: 11/14/23 1012 Distribution Designer: MILLY [place] [facility] [address] [place] [address] Mammography Report Signed Patient: Dyan Wang MR#: [id number] : 1950 Acct:[id number] Age/Sex: 73 / F ADM Date: 11/14/23 Loc: HO.MAMMO Attending Dr: Yung Delgado MD Ordering Physician: Yung Delgado MD Results: Date of Service: 11/14/23 Follow Up: Procedure(s): XR DEX A axial skeleton Accession Number(s): [id number] cc: Yung Delgado MD EXAMINATION: BONE DENSITOMETRY CLINICAL INDICATION: Osteopenia. COMPARISON: This is the patient' s baseline examination. TECHNIQUE: Using a [email or web address] DXA System (software version: 13.1) manufactured b [employer], dual-energy x-ray absorptiometry was performed of the lumbar spine and left hip. The images are of good technical quality. Summary results are attached. FINDINGS: LEFT FEMUR, NECK: BMD 0.598 g/cm2, Z-score -1.0, T-score -3.2, osteoporosis. LEFT FEMUR, TOTAL: BMD 0.570 g/cm2, Z-score -1.5, T-score -3.5, osteoporosis. AP SPINE L1-L4: BMD 0.687 g/cm2, Z-score -2.0, T-score -4.1, osteoporosis. IDENTIFIED RISK FACTORS: Menopause, hysterectomy, bilateral oophorectomy. HISTORY OF FRACTURE: None listed. MEDICATIONS: Calcium. MM/XR DEXA axial skeleton IMPRESSION: 1. DIAGNOSIS: Osteoporosis based on the lowest T-score value of -4.1 in the lumbar spine applying World Health Organization criteria. 2. 10-YEAR FRACTURE RISK PREDICTION, FRAX: According to the guidelines, FRAX calculation isa uld only be performed on patients in the osteopenia bone density categor y. Therefore, FRAX was not performed on this patient. 3. Treatment Recommendations: NOF guidelines recommend consideration for treatment in postmenopausal women and men age 50 and older presenting with the following: -A hip or vertebral (clinical or morphometric) fracture. -T-score less than o r equal to -2.5 at the femoral neck or spine after appropriate evaluati on to exclude secondary causes. -Low bone mass at th e hip or spine and a 10-year fracture probability by FRAX of greater t ortiz or equal to 3% for hip fracture or greater than or equal to 20% for major osteoporotic fracture based on the [place] adapted WHO algorithm. 4. Other Recommendations: All treatment decisions require clinical judgment and consideration of individual patient factors, including patient preferences, comorbidities, previous drug use, risk factors not captured in the FRAX model (e.g. frailty, falls, vitamin D deficiency, increased bone turnover, interval significant decline in bone density) and possible under o r overestimation of fracture risk by FRAX. Additional medical evaluation for secondary cause of low bone mineral density may be appropriate. FUTURE SCAN RECOMMENDATION: People with diagnose d cases of osteoporosis or at high risk for fracture should have regular bone mineral density tests. For patients eligible for Medicar e, routine testing is allowed once every 2 years. The testing frequenc y can be increased to one year for patients who have rapidly progressing disease, those who are receiving or discontinuing medica l therapy to restore bone mass, or have additional risk factors. Electronically mara d by: Jasson Last MD 11/15/2023 03:08 PM EDT Dictated By: Jasson Last MD Signed By: <Electronically signed by Jasson Last MD in OV> 11/15/23 1508 DD/ 0945 TD/TT: 11/14/23 1012 Distribution Designer: MILLY Reason For Referral No Information Medications Medication SIG (Take, Route, Frequency, Duration) Notes Start Date End Date Status Triamterene-HCTZ 37.5-25 MG TAKE 1 CAPSU LE DAILY IN THEMORNING Active Atorvastatin Calcium 40 MG TAKE 1 TABLET ONCE DAILY for 90 Active Atenolol 100 MG TAKE 1 TABLET TWICE A DAY for 90 Active Immunizations Vaccine Route Administration Date Status Comme nts PPV 23 Unknown 11/29/2016 Administered PCV13 Unknown 11/25/2015 Administered COVID 19 Shayne Unknown 08/22/2020 Administered Zostavax Unknown 11/25/2015 Administered Tdap Unknown 07/28/2015 Administered Social History Tobacco Use: Social History Observation Description Date Details (start date - stop date) Never Smoker NA - NA Sex Assigned At : Social History Observation Description Sex Assigned At Female Tobacco Use/Smoking Question Answer Notes Patient is a nonsmoker Additional Findings: Tobacco Non-User Aggressive non-smoker Alcohol Screen Question Answer Notes Did you have a drink contain ing alcohol in the past year? Yes How often did you have a dri nk containing alcohol in the past year? 4 or more times a week (4 points) How many drinks did you have on a typical day when you were drinking in the past year? 1 or 2 drinks (0 point) How often did you have 6 or more drinks on one occasion in the past year? Never (0 point) Points 4 Interpretation Positive Problems Problem Type SNOMED Code ICD Code Onset Dates Problem Status W/U Status Risk Notes Problem 132051865 Underweight (R63.6) Active confirmed Her body mass index is now 19. Her nutrition seems good.We discussed her diet at length today. Problem 647900223 Mixed hyperlipidemia (E78.2) Active confirmed Her lipids are currently stable. Her body mass index is 19. We discussed her diet at length today. Problem 706149265 Acquired absence of both cervix and uterus (Z90.710) Active confirmed She declined a ENGRAVING SUPERVISOR referral, pelvic exam, rectal exam and breast examination colonoscopy or cologard today. 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 She is free of any symptoms. Problem 80480947 Essential hypertension (I10) Active confirmed Her blood pressure is stable in the normal range and no change in her therapy was needed. Problem Glaucoma (H40.9) Active confirmed Problem 57886608 Vitamin D deficiency (E55.9) Active confirmed She will continue on vitamin D. Vital Signs Heart Rate 54 /min 11/15/2023 Temperature 97.3 degrees Fahrenheit 11/15/2023 Blood pressure diastolic 57 mm Hg 11/15/2023 Height 65 in 11/15/2023 Blood pressure systolic 131 mm Hg 11/15/2023 Weight 118 lbs 11/15/2023 BMI 19.63 kg/m2 11/15/2023 Encounters Encounter Location Date Provider Diagnosis Yung Delgado III, MD [address] [place] [address] [address] [place] [id number] 08/01/2023 Yung Delgado Essential hypertensi on I10 ; Mixed hyperlipidemia E78.2 ; Underweight R63.6 ; Vitamin D deficiency E55.9 ; Acquired absence of both cervix and uterus Z90.710 ; Acquired absence of ovaries, unilateral Z90.721 and Osteopenia, unspecified location M85.80 Yung Delgado III, MD [address] [place] [address] [address] [place] [id number] 11/15/2023 Yung Delgado Mixed hyperlipidemia E78.2 ; Vitamin D deficiency E55.9 ; Essential hypertension I10 ; Underweight R63.6 and Osteopenia, unspecified location M85.80 Assessments Encounter Date Diagnosis (ICD Code) Assessment Notes Treat ment Notes Treatment Clinical Notes 08/01/2023 Mixed hyperlipidemia (ICD-10 - E78.2) Her lipids are in near target range. No change in her regimen as needed. 08/01/2023 Essential hypertension (ICD-10 - I10) Her blood pressure is stable in the normal range and no change in her therapy was needed. 11/15/2023 Mixed hyperlipidemia (ICD-10 - E78.2) Her lipids are currently stable. Her body mass index is 19. We discussed her diet at length today. 11/15/2023 Vitamin D deficiency (ICD-10 - E55.9) She will continue on vitamin D. 08/01/2023 Underweight (ICD-10 - R63.6) She has lost 3 pounds in her body mass index is now 19. Her nutrition seems good. 11/15/2023 Essential hypertension (ICD-10 - I10) Her blood pressure is stable in the normal range and no change in her therapy was needed. 08/01/2023 Vitamin D deficiency (ICD-10 - E55.9) He has been compliant with her vitamin D replacement. 11/15/2023 Underweight (ICD-10 - R63.6) Her body mass index is now 19. Her nutrition seems good.We discussed her diet at length today. 08/01/2023 Acquired absence of both cervix and uterus (ICD-10 - Z90.710) She declined a ENGRAVING SUPERVISOR referral, pelvic exam, rectal exam and breast examination colonoscopy or cologard today. 11/15/2023 Osteopenia, unspecified location (ICD-10 - M85.80) She is taking vitamin D and calcium tablets twice a day. 08/01/2023 Acquired absence of ovaries, unilateral (ICD-10 - Z90.721) 08/01/2023 Osteopenia, unspecified location (ICD-10 - M85.80) Plan Of Treatment Pending Test Test Name Order Date PROFILE, FASTING (COMPREHENSIVE METABOLI C) 07/20/2020 PROFILE, FASTING (COMPREHENSIVE METABOLI C) 07/29/2021 PROFILE, FASTING (COMPREHENSIVE METABOLI C) 08/03/2022 PROFILE, FASTING (COMPREHENSIVE METABOLI C) 10/05/2018 PROFILE, FASTING (COMPREHENSIVE METABOLI C) 11/15/2023 PROFILE, FASTING (COMPREHENSIVE METABOLI C) 08/01/2023 PROFILE, FASTING (COMPREHENSIVE METABOLI C) 11/26/2019 PROFILE, FASTING (COMPREHENSIVE METABOLI C) 10/28/2020 PROFILE, FASTING (COMPREHENSIVE METABOLI C) 11/12/2021 PROFILE, FASTING (COMPREHENSIVE METABOLI C) 10/26/2022 PROFILE, FASTING (COMPREHENSIVE METABOLI C) 08/01/2019 LIPID PANEL 10/26/2022 LIPID PANEL 08/01/2019 LIPID PANEL 07/20/2020 LIPID PANEL 08/03/2022 LIPID PANEL 10/05/2018 LIPID PANEL 11/26/2019 LIPID PANEL 10/28/2020 LIPID PANEL 11/12/2021 CBC w DIFF 11/12/2021 CBC w DIFF 10/26/2022 CBC w DIFF 08/01/2019 CBC w DIFF 07/29/2021 CBC w DIFF 07/20/2020 CBC w DIFF 08/01/2023 CBC w DIFF 08/03/2022 CBC w DIFF 10/05/2018 CBC w DIFF 11/26/2019 CBC w DIFF 10/28/2020 BONE DENSITY DEXA 08/01/2023 CBC WITH AUTO DIFF 11/15/2023 Lipid Panel 07/29/2021 Lipid Panel 11/15/2023 Lipid Panel 08/01/2023 Vitamin D 25-OH Total 11/15/2023 Vitamin D 25-OH Total 08/01/2023 Next Appt Details Provider Name:Yung Delgado, 08/05/2024 02:30:00 PM, [address] [place] [address] [address], [address], [place], [address], Insurance Providers Payer Name Payer Address Payer Phone Subscriber Number Group Number Insured Name Patient Relationship to Insured Coverage Start Date Coverage End Date MEDICARE NGS [address] [place] [address] [id number] Dyan Wang Self - patient is the insured [facility] [address] [place] [address] [phone] [id number] Dyan Wang Self - patient is the insured Medical (General) History Medical History History ICD Code HTN (hypertension) I10 Hypercholesterolemia E78.00 hysterectomy for pain. 2001 , benign dis ease history of benign breast biopsy Surgical History Surgery Date(Month/Year) breast biopsy for benign disease Hysterectomy left inguinal hernia repair Tonsillectomy
[2024-07-30 13:11] LABS: MANUAL DIFF FLAG NO
[2024-07-30 13:36] LABS: Basophils Absolute Auto 0.1 X10*3/uL (0.0-0.2); Eosinophils Absolute Auto 0.6 X10*3/uL (0.0-0.4); Eosinophils Percent Auto 7.4 % (0-4); Hematocrit 44.7 % (37.0-47.0); Hemoglobin 14.8 g/dl (12.0-16.0); Imm Gran Abs Auto 0.05 X10*3/uL (0.00-0.03); Imm Gran Pct Auto 0.6 % (0.0-0.4); Lymphocytes Percent Auto 24.4 % (20-40); Mean Corpuscular HGB Conc 33.1 g/dl (31.0-35.0); Mean Corpuscular Hemoglobin 33.6 pg (27.0-33.0); Mean Corpuscular Volume 101.6 fL (80.0-98.0); Mean Platelet Volume 9.1 fL (9.4-12.3); Monocytes Absolute Auto 1.1 X10*3/uL (0.1-1.2); Monocytes Percent Auto 13.3 % (2-11); Neutrophils Absolute Auto 4.4 x10*3/uL (2.0-8.3); Neutrophils Percent Auto 53.3 % (45-73); Platelet Count 276 X10*3/uL (160-400); Red Cell Distribution Width 12.5 % (11.0-16.0); White Blood Count 8.3 X10*3/uL (4.8-10.8)
[2024-07-30 14:07] LABS: Alanine Aminotransferase 29 U/L (0-31); Albumin Level 4.5 g/dL (3.5-5.0); Alkaline Phosphatase 72 U/L (39-117); Anion Gap 12 (12-20); Aspartate Amino Transferase 31 U/L (5-31); Bilirubin Total 1.4 mg/dL (0.0-1.0); Blood Urea Nitrogen 19 mg/dL (9-16); Calcium 10.1 mg/dL (8.4-10.2); Carbon Dioxide 31 mmol/L (22-29); Chloride 104 mmol/L (96-108); Cholesterol 213 mg/dL (<200); Estimated Glomerular Filt Rate > 60; Glucose Fasting 105 mg/dL (60-99); HDL Cholesterol 69 mg/dL (>40); LDL Cholesterol Calculated 115 mg/dL (<100); Potassium 3.9 mmol/L (3.3-5.1); Sodium 143 mmol/L (135-145); Total Protein 7.5 g/dL (6.5-8.0); Triglycerides 146 mg/dL (<150)
[2024-07-30 14:25] LABS: Vitamin D 25-OH Total 153.9 ng/mL (>30)
== END 2024-07-30 09:49 | disposition home or self-care (01) ==
LOC: HO.HMGCLDS 09:48
PROVIDERS: PCP Internal Medicine Medical Oncology; Visit Provider Internal Medicine Medical Oncology
DX: E78.2 Mixed hyperlipidemia (principal); E55.9 Vitamin D deficiency, unspecified
CPT/HCPCS: 36415; 80053; 80061; 82306; 85025

== ENCOUNTER 2024-10-22 09:46 | Outpatient (REF) | payer MEDICARE, OTHER, SELFPAY ==
--- OUTSIDE RECORDS SUMMARY | 2023-11-15 10:30 | XMS_ITS ---
Author Organization Yung Delgado III, MD Address [address] [place] [address] [address] [id number] Care Team Providers Care Sales Agent Insurance Name Role Phone Yung Delgado Primary Care Provider [phone] Allergies Allergen (clinical drug ingredient) Drug/Non Drug Allergy documented on EMR Reaction Allergy Type Onset Date Status No Known Drug Allergy Unknown Drug Allergy Active REASON FOR VISIT Hypertension, Hyperlipidemia, Underweight, Glaucoma, Vitamin D deficiency Medications Medication SIG (Take, Route, Frequency, Duration) Notes Start Date End Date Status Atenolol 100 MG TAKE 1 TABLET TWICE A DAY Orally twice a day Active Triamterene-HCTZ 37.5-25 MG TAKE 1 CAPSU LE DAILY IN THEMORNING Active Atorvastatin Calcium 40 MG TAKE 1 TABLET ONCE DAILY Orally Once a day Active Social History Tobacco Use: Social History Observation Description Date Details (start date - stop date) Never Smoker NA - NA Sex Assigned At : Social History Observation Description Sex Assigned At Female Tobacco Use/Smoking Question Answer Notes Patient is a nonsmoker Additional Findings: Tobacco Non-User Aggressive non-smoker Vital Signs Temperature 97.3 degrees Fahrenheit 11/15/19 24 Blood pressure systolic 131 mm Hg 11/15/19 24 Blood pressure diastolic 57 mm Hg 024 Heart Rate 54 /min 11/15/2023 Height 65 in 11/15/2023 Weight 118 lbs 11/15/2023 BMI 19.63 kg/m2 11/15/2023 Encounters Encounter Location Date Provider Diagnosis Yung Delgado III, MD [address] [place] [address] [place] [id number] 11/15/2023 Yung Delgado Mixed hyperlipidemia E78.2 ; Vitamin D deficiency E55.9 ; Essential hypertension I10 ; Underweight R63.6 and Osteopenia, unspecified location M85.80 Assessments Encounter Date Diagnosis (ICD Code) Assessment Notes Treat ment Notes Treatment Clinical Notes 11/15/2023 Mixed hyperlipidemia (ICD-10 - E78.2) Her lipids are currently stable. Her body mass index is 19. We discussed her diet at length today. 11/15/2023 Vitamin D deficiency (ICD-10 - E55.9) She will continue on vitamin D. 11/15/2023 Essential hypertension (ICD-10 - I10) Her blood pressure is stable in the normal range and no change in her therapy was needed. 11/15/2023 Underweight (ICD-10 - R63.6) Her body mass index is now 19. Her nutrition seems good.We discussed her diet at length today. 11/15/2023 Osteopenia, unspecified location (ICD-10 - M85.80) She is taking vitamin D and calcium tablets twice a day. Plan Of Treatment Medication Medication Name Sig Start Date Stop Date Notes Atenolol 100 MG TAKE 1 TABLET TWICE A DAY Orally twice a day Triamterene-HCTZ 37.5-25 MG TAKE 1 CAPSU LE DAILY IN THEMORNING Atorvastatin Calcium 40 MG TAKE 1 TABLET ONCE DAILY Orally Once a day Pending Test Test Name Order Date PROFILE, FASTING (COMPREHENSIVE METABOLI C) 11/15/2023 CBC WITH AUTO DIFF 11/15/2023 Lipid Panel 11/15/2023 Vitamin D 25-OH Total 11/15/2023 Next Appt Details Follow Up: As Scheduled, Mere son: OV Provider Name:Yung Delgado, 11/01/2024 10:45:00 AM, [address] [place] [address] [address], [phone], Provider Name:Yung Delgado, 08/06/2025 02:30:00 PM, [address] [place] [address] [place], [phone], Progress Notes * Dyan WANG MDOB:1950 (73 yo F)Acc No.[id number]:11/15/2023 Progress Notes Patient: Dyan De La Cruz Provider: Martha Delgado MD :1950 A ge:73 Y S ex:Female Date:11/15/2023 Address:[address] [place], [place] [id number] Subjective: * Chief Complaints: * H ypertensionHyperlipidemiaUnderweightGlaucomaVitamin D deficiency * HPI: C OVID-19 Screening: She returns to the office for medical management. She feels healthy and well today. She denies any chest pain shortness of breath bleeding joint pain or skin lesions. Her blood pressure was controlled today. Her blood work was reviewed in detail. She has been compliant with all of her treatments. Questions H ave you experienced fever, chills, cough, sore throat, shortness of breath, difficulty breathing, muscle aches, loss of taste or smell? N o H ave you been exposed to the virus within the last 10 days? N o H ave you travelled internationally in the last 10 days? N o H ave you been exposed to COVID-19 in the past? Y es * ROS: G eneral/Constitutional: pain o nly normal aches and pains. C hills d enies.?Fatigue a dmits. F ever d enies. E NT: Decreased hearing d enies. R espiratory: Cough d enies. C ardiovascular: Chest pain with exertion d enies. D yspnea on exertion?denies. S hortness of breath d enies. G astrointestinal: Constipation o ccasional. D ecreased appetite d enies. D iarrhea d enies. H eartburn o ccasional. N ausea d enies. R ectal bleeding d enies. V omiting d enies. H ematology: bruising d enies. p etechiae d enies. S wollen glands n one have been noted. G enitourinary: Frequent urination a t night. M usculoskeletal: Muscle aches d enies. P ainful joints d enies. S ciatica d enies. W eakness d enies. S kin: Itching d enies. R ingrid d enies. S kin lesion(s)?denies. N eurologic: Difficulty speaking d enies. D izziness d enies.?Headache d enies. L ow back pain d enies. P sychiatric: Depressed mood d enies. * Medical History: * Surgical History: T onsillectomy left inguinal hernia repair Hysterectomy breast biopsy for benign disease * Hospitalization/Major Diagno stic Procedure: D enies Past Hospitalization * Family History: F ather: 64 yrs, Overweight, coronary artery disease, myocardial infarction, asbestosis, diagnosed with CVD. M other: 68 yrs, Recurrent lung cancer, nonsmoker, diagnosed with Cancer. C hildren: alive. D aughter(s): alive, Oldest daughter had breast cancer, diagnosed with Cancer. S iblings: alive. M atedreal Grand Mother: , breast cancer. 2 brother(s) - healthy. 2 daughter(s) . . Her father from heart disease. Her mother from lung cancer. She has 2 brothers who are healthy and well. She has no sisters. She is not aware of any family history of mental illness or addiction or substance abuse. * Social History: T obacco Use: T obacco Use/Smoking P atient is a n onsmoker A dditional Findings: Tobacco Non-User A ggressive non-smoker S he is and has 2 daughters. One daughter had stage I breast cancer at the age of 43. She has one grandchild. The daughter has refused genetic testing in the past feeling a loss of insurance coverage. * Medications: T akingAtenolol 100 MG Tablet TAKE 1 TABLET TWICE A DAY Orally twice a dayAtorvastatin Calcium 40 MG Tablet TAKE 1 TABLET ONCE DAILY Orally Once a dayTriamterene-HCTZ 37.5-25 MG Capsule TAKE 1 CAPSULE DAILY IN THEMORNING Medication List reviewed and reconciled with the patientTaking Atenolol 100 MG Tablet TAKE 1 TABLET TWICE A DAY Orally twice a dayTaking Atorvastatin Calcium 40 MG Tablet TAKE 1 TABLET ONCE DAILY Orally Once a dayTaking Triamterene-HCTZ 37.5-25 MG Capsule TAKE 1 CAPSULE DAILY IN THEMORNING Medication List reviewed and reconciled with the patient * Allergies: N o Known Drug Allergyno[Allergies Verified] Objective: * Vitals: H t: 65, Wt:118, BMI:19.63, BP:131/57, HR:54, Temp:97.3, Wt-k.52. * P ast Orders: Lab:Lipid Panel * Order Date 11/06/2023 07/26/2023 08/10/2021 Triglycerides 167 H (Ref Range: <150 mg/dL) 164 H (Ref Range: <150 mg/dL) 93 (Ref Range: mg/dL) Cholesterol 173 (Ref Range: <200 mg/dL) 198 (Ref Range: <200 mg/dL) 185 (Ref Range: mg/dL) LDL Cholesterol Calculated 78 (Ref Range: <100 mg/dL) 104 H (Ref Range: <100 mg/dL) 105 (Ref Range: mg/dl) HDL Cholesterol 62 (Ref Range: >40 mg/dL) 62 (Ref Range: >40 mg/dL) 62 (Ref Range: mg/dL) * Lab:Comprehensive [place]. Pane l Fast * Order Date 11/06/2023 07/26/2023 08/10/2021 Sodium 144 (Ref Range: 135-145 mmol/L) 142 (Ref Range: 135-145 mmol/L) 141 (Ref Range: 135-145 mmol/L) Bilirubin Total 1.6 H (Ref Range: 0.0-1.0 mg/dL) 1.8 H (Ref Range: 0.0-1.0 mg/dL) 1.2 H (Ref Range: 0.0-1.0 mg/dL) Aspartate Amino Transferase 39 H (Ref Range: 5-31 U/L) 26 (Ref Range: 5-31 U/L) 21 (Ref Range: 5-31 U/L) Alanine Aminotransferase 33 H (Ref Range: 0-31 U/L) 24 (Ref Range: 0-31 U/L) 18 (Ref Range: 0-31 U/L) Total Protein 7.6 (Ref Range: 6.5-8.0 g/dL) 7.5 (Ref Range: 6.5-8.0 g/dL) 7.0 (Ref Range: 6.5-8.0 g/dL) Albumin Level 4.3 (Ref Range: 3.5-5.0 g/dL) 4.3 (Ref Range: 3.5-5.0 g/dL) 4.2 (Ref Range: 3.5-5.0 g/dL) Alkaline Phosphatase 79 (Ref Range: 39-117 U/L) 74 (Ref Range: 39-117 U/L) 82 (Ref Range: 39-117 U/L) Potassium 3.6 (Ref Range: 3.3-5.1 mmol/L) 3.6 (Ref Range: 3.3-5.1 mmol/L) 4.0 (Ref Range: 3.3-5.1 mmol/L) Chloride 105 (Ref Range: 96-108 mmol/L) 103 (Ref Range: 96-108 mmol/L) 106 (Ref Range: 96-108 mmol/L) Carbon Dioxide 27 (Ref Range: 22-29 mmol/L) 28 (Ref Range: 22-29 mmol/L) 27 (Ref Range: 22-29 mmol/L) Anion Gap 16 (Ref Range: 12-20) 15 (Ref Range: 12-20) 12 (Ref Range: 12-20) Blood Urea Nitrogen 19 H (Ref Range: 9-16 mg/dL) 17 H (Ref Range: 9-16 mg/dL) 12 (Ref Range: 9-16 mg/dL) Creatinine 0.86 (Ref Range: 0.5-1.4 mg/dL) 0.83 (Ref Range: 0.5-1.4 mg/dL) 0.77 (Ref Range: 0.5-1.4 mg/dL) Estimated Glomerular Filt Rate > 60 > 60 > 60 Glucose Fasting 92 (Ref Range: 60-99 mg/dL) 81 (Ref Range: 60-99 mg/dL) 107 H (Ref Range: 60-99 mg/dL) Calcium 10.5 H (Ref Range: 8.4-10.2 mg/dL) 9.6 (Ref Range: 8.4-10.2 mg/dL) 9.0 (Ref Range: 8.4-10.2 mg/dL) * Lab:Complete Blood Count Aut o Diff * Order Date 11/06/2023 07/26/2023 08/10/2021 White Blood Count 7.5 (Ref Range: 4.8-10.8 X10*3/uL) 7.1 (Ref Range: 4.8-10.8 X10*3/uL) 6.4 (Ref Range: 4.8-10.8 X10*3/uL) Red Blood Count 4.41 (Ref Range: 4.20-5.50 X10*6/uL) 4.41 (Ref Range: 4.20-5.50 X10*6/uL) 4.20 (Ref Range: 4.20-5.50 X10*6/uL) Hemoglobin 14.6 (Ref Range: 12.0-16.0 g/dl) 14.7 (Ref Range: 12.0-16.0 g/dl) 14.1 (Ref Range: 12.0-16.0 g/dl) Hematocrit 44.7 (Ref Range: 37.0-47.0 %) 43.7 (Ref Range: 37.0-47.0 %) 42.2 (Ref Range: 37.0-47.0 %) Mean Corpuscular Volume 101.4 H (Ref Range: 80.0-98.0 fL) 99.1 H (Ref Range: 80.0-98.0 fL) 100.5 H (Ref Range: 80.0-98.0 fL) Mean Corpuscular Hemoglobin 33.1 H (Ref Range: 27.0-33.0 pg) 33.3 H (Ref Range: 27.0-33.0 pg) 33.6 H (Ref Range: 27.0-33.0 pg) Mean Corpuscular HGB Conc 32.7 (Ref Range: 31.0-35.0 g/dl) 33.6 (Ref Range: 31.0-35.0 g/dl) 33.4 (Ref Range: 31.0-35.0 g/dl) Red Cell Distribution Width 12.4 (Ref Range: 11.0-16.0 %) 11.7 (Ref Range: 11.0-16.0 %) 12.1 (Ref Range: 11.0-16.0 %) Platelet Count 268 (Ref Range: 160-400 X10*3/uL) 285 (Ref Range: 160-400 X10*3/uL) 270 (Ref Range: 160-400 X10*3/uL) Mean Platelet Volume 9.2 L (Ref Range: 9.4-12.3 fL) 9.1 L (Ref Range: 9.4-12.3 fL) 9.0 L (Ref Range: 9.4-12.3 fL) Neutrophils Percent Auto 49.9 (Ref Range: 45-73 %) 54.3 (Ref Range: 45-73 %) 48.5 (Ref Range: 45-73 %) Imm Gran Pct Auto 0.7 H (Ref Range: 0.0-0.4 %) 0.6 H (Ref Range: 0.0-0.4 %) 0.5 H (Ref Range: 0.0-0.4 %) Lymphocytes Percent Auto 27.7 (Ref Range: 20-40 %) 23.5 (Ref Range: 20-40 %) 29.1 (Ref Range: 20-40 %) Monocytes Percent Auto 13.3 H (Ref Range: 2-11 %) 13.8 H (Ref Range: 2-11 %) 14.8 H (Ref Range: 2-11 %) Eosinophils Percent Auto 7.7 H (Ref Range: 0-4 %) 7.0 H (Ref Range: 0-4 %) 6.3 H (Ref Range: 0-4 %) Basophils Percent Auto 0.7 (Ref Range: 0-2 %) 0.8 (Ref Range: 0-2 %) 0.8 (Ref Range: 0-2 %) NRBC Pct Auto 0.0 (Ref Range: 0.0-0.2 /100WBC) 0.0 (Ref Range: 0.0-0.2 /100WBC) 0.0 (Ref Range: 0.0-0.2 /100WBC) Neutrophils Absolute Auto 3.7 (Ref Range: 2.0-8.3 x10*3/uL) 3.9 (Ref Range: 2.0-8.3 x10*3/uL) 3.1 (Ref Range: 2.0-8.3 x10*3/uL) Imm Gran Abs Auto 0.05 H (Ref Range: 0.00-0.03 X10*3/uL) 0.04 H (Ref Range: 0.00-0.03 X10*3/uL) 0.03 (Ref Range: 0.00-0.03 X10*3/uL) Lymphocytes Absolute Auto 2.1 (Ref Range: 1.2-4.9 X10*3/uL) 1.7 (Ref Range: 1.2-4.9 X10*3/uL) 1.9 (Ref Range: 1.2-4.9 X10*3/uL) Monocytes Absolute Auto 1.0 (Ref Range: 0.1-1.2 X10*3/uL) 1.0 (Ref Range: 0.1-1.2 X10*3/uL) 0.9 (Ref Range: 0.1-1.2 X10*3/uL) Eosinophils Absolute Auto 0.6 H (Ref Range: 0.0-0.4 X10*3/uL) 0.5 H (Ref Range: 0.0-0.4 X10*3/uL) 0.4 (Ref Range: 0.0-0.4 X10*3/uL) Basophils Absolute Auto 0.1 (Ref Range: 0.0-0.2 X10*3/uL) 0.1 (Ref Range: 0.0-0.2 X10*3/uL) 0.1 (Ref Range: 0.0-0.2 X10*3/uL) NRBC Abs Auto 0.000 (Ref Range: 0.0-0.012 X10*3/uL) 0.000 (Ref Range: 0.0-0.012 X10*3/uL) 0.000 (Ref Range: 0.0-0.012 X10*3/uL) ???Lab:Vitamin D 25-OH Total (Order Date - 11/06/2023) (Collection Date - 11/06/2023)?ValueReference Range?Vitamin D 25-OH Total38.4>30 - ng/mL * Examination: G eneral Examination: GENERAL APPEARANCE: p leasant, well nourished, well developed, in no acute distress, calm and relaxed , underweight , woman. HEAD: a traumatic, normocephalic. EYES: e donna, perrla, anicteric, conjugate. EARS: n ormal. NOSE: s eptum intact. ORAL CAVITY: n ormal, unremarkable. NECK/THYROID: n o jugular venous distention, no carotid bruit, thyroid normal. LYMPH NODES: n o enlarged lymph nodes,spleen normal. SKIN: n o suspicious lesions, anicteric. HEART: n o clicks, gallops, murmurs, or rubs, regular rhythm, S1, S2 normal, no s3, or vascular bruits. LUNGS: c lear to auscultation . BREASTS: n ot examined. ABDOMEN: b owel sounds normal, no ascites, no organomegaly, no mass. RECTAL EXAM: n ot examined. MUSCULOSKELETAL: e xtremities unremarkable, no clubbing, cyanosis or edema. PERIPHERAL PULSES: n ormal. NEUROLOGIC: a lert and oriented, cranial nerves 2-12 grossly intact, deep tendon reflexes 2+ symmetrical, motor strength normal upper and lower extremities, sensory exam intact. PSYCH: a lert, oriented. Assessment: * Assessment: 1. M ixed hyperlipidemia - E78.2, Her lipids are currently stable. Her body mass index is 19. We discussed her diet at length today. 2 . V itamin D deficiency - E55.9, She will continue on vitamin D. 3 . E ssential hypertension - I10, Her blood pressure is stable in the normal range and no change in her therapy was needed. 4 . U nderweight - R63.6, Her body mass index is now 19. Her nutrition seems good.We discussed her diet at length today. 5 . O steopenia, unspecified location - M85.80, She is taking vitamin D and calcium tablets twice a day. Plan: * Treatment: 2. V itamin D deficiency L AB: PROFILE, FASTING (COMPREHENSIVE METABOLIC) L AB: CBC WITH AUTO DIFF L AB: Lipid Panel L AB: Vitamin D 25-OH Total 3. O thers Continue Triamterene-HCTZ Capsule, 37.5-25 MG, TAKE 1 CAPSULE DAILY IN THEMORNING; C ontinue Atenolol Tablet, 100 MG, TAKE 1 TABLET TWICE A DAY, Orally, twice a day; C ontinue Atorvastatin Calcium Tablet, 40 MG, TAKE 1 TABLET ONCE DAILY, Orally, Once a day. * Procedure Codes: * Preventive Medicine: Counseling: C are goal follow-up plan: Counseling for abnormal BMI given Y es Below Normal BMI Follow-up D ietary education for weight gain * Follow Up: A s Scheduled (Reason: OV) * Images: * Sign off status: Completed true * Provider: Martha Delgado MD Date: 0 11/15/2023 Generated for Printi ng/Famitchg/eTransmitting on: 0 10/22/2024 10:30 AM EDT History and Physical Notes * HPI (History of Present Illness) Category Sub-Category Detail Notes COVID-19 Screening Questions Have you had any new onset fever, chills, cough, congestion, sore throat, shortness of breath, muscle aches?: No Have you been exposed to the virus withi n the last 10 days?: No Have you travelled internationally in [facility] last 10 days?: No Have you been exposed to COVID-19 in the past?: Yes Examination Category Sub-Category Detail Notes General Examination GENERAL APPEARANCE: pleasant , well nourished, well developed, in no acute distress, calm and relaxed , underweight , woman HEAD: atraumatic, normocep halic EYES: eomi, perrla, anicte manolo, conjugate EARS: normal NOSE: septum intact NECK/THYROID: no jugular venous di stention, no carotid bruit, thyroid normal HEART: no clicks, gallops, murmurs, or rubs, regular rhythm, S1, S2 normal, no s3, or vascular bruits LUNGS: clear to auscultatio n ABDOMEN: bowel sounds normal, no ascites, no organomegaly, no mass NEUROLOGIC: alert and oriented, cranial nerves 2-12 grossly intact, deep tendon reflexes 2+ symmetrical, motor strength normal upper and lower extremities, sensory exam intact SKIN: no suspicious lesion s, anicteric PERIPHERAL PULSES: normal BREASTS: not examined MUSCULOSKELETAL: extremities unremark able, no clubbing, cyanosis or edema LYMPH NODES: no enlarged lymph no louisa,spleen normal RECTAL EXAM: not examined PSYCH: alert, oriented ORAL CAVITY: normal, unremarkable
--- OUTSIDE RECORDS SUMMARY | 2024-08-05 10:30 | XMS_ITS ---
Author Organization Yung Delgado III, MD Address [address] [place] [address] Care Team Providers Care Commercial Portfolio Manager Name Role Phone Yung Delgado Primary Care Provider [phone] Allergies Allergen (clinical drug ingredient) Drug/Non Drug Allergy documented on EMR Reaction Allergy Type Onset Date Status No Known Drug Allergy Unknown Drug Allergy Active No Known Food Allergy Unknown Drug Allergy Active Results Component Value Reference Range Notes URINE DIP STICK Reviewed date:08/05/2024 02:27:54 PM Interpretation: Performing Lab: Notes/Report: SG 1.015 1.005 - 1.025 pH 6.0 5.0 - 9.0 GENOVEVA 70 + Negative - NIT Negative Negative - PRO 15 Negative - Trace GLU 1 Negative - KET Negative Negative - UBG 0.2 0.1 - 1.8 MIGUEL ANGEL 1 0.2 - 1.3 BLD 50 Negative - REASON FOR VISIT Annual Exam Medications Medication SIG (Take, Route, Frequency, Duration) Notes Start Date End Date Status Triamterene-HCTZ 37.5-25 MG TAKE 1 CAPSU LE DAILY IN THEMORNING Active Atorvastatin Calcium 40 MG TAKE 1 TABLET ONCE DAILY Active Atenolol 100 MG TAKE 1 TABLET TWICE A DAY Active Social History Tobacco Use: Social History Observation Description Date Details (start date - stop date) Never Smoker NA - NA Sex Assigned At : Social History Observation Description Sex Assigned At Female Tobacco Control (Standard) Question Answer Notes Tobacco use: Nonsmoker Additional Findings: Tobacco non-user Aggressive nonsmoker AUDIT-C (Standard) Question Answer Notes Did you have a drink contain ing alcohol in the past year? Yes How often did you have six o r more drinks on one occasion in the past year? 4 or more times a week (4 points) How many drinks did you have on a typical day when you were drinking in the past year? 1 or 2 drinks (0 point) How often did you have a dri nk containing alcohol in the past year? Never (0 point) Points 4 Interpretation Positive Problems Problem Type SNOMED Code ICD Code Onset Dates Problem Status W/U Status Risk Notes Problem [id number] Macrocytosis (D75.89) Active confirmed Her mean cell volume remains slightly elevated. We will continue to observe this. Her hematocrit is normal. Vital Signs Temperature 97.2 degrees Fahrenheit 08/06/19 25 Blood pressure systolic 136 mm Hg 08/06/19 25 Blood pressure diastolic 75 mm Hg 025 Heart Rate 64 /min 08/05/2024 Height 65 in 08/05/2024 Weight 120 lbs 08/05/2024 BMI 19.97 kg/m2 08/05/2024 Encounters Encounter Location Date Provider Diagnosis Yung Delgado III, MD [address] [place] [address] [place] [address] 08/05/2024 Yung Delgado Essential hypertensi on I10 ; Mixed hyperlipidemia E78.2 ; Underweight R63.6 and Macrocytosis D75.89 Assessments Encounter Date Diagnosis (ICD Code) Assessment Notes Treat ment Notes Treatment Clinical Notes 08/05/2024 Essential hypertension (ICD-10 - I10) Her blood pressure is stable in the normal range and no change in her therapy was needed. 08/05/2024 Mixed hyperlipidemia (ICD-10 - E78.2) Her lipids are currently stable. Her body mass index is 19. We discussed her diet at length today. 08/05/2024 Underweight (ICD-10 - R63.6) Her body mass index is now 19. Her nutrition seems good.We discussed her diet at length today. 08/05/2024 Macrocytosis (ICD-10 - D75.89) Her mean cell volume is slightly elevated at 101.6. This value will be followed. If necessary will be investigated with a reticulocyte count, B12 and folic acid. Plan Of Treatment Medication Medication Name Sig Start Date Stop Date Notes Triamterene-HCTZ 37.5-25 MG TAKE 1 CAPSU LE DAILY IN THEMORNING Atorvastatin Calcium 40 MG TAKE 1 TABLET ONCE DAILY Atenolol 100 MG TAKE 1 TABLET TWICE A DAY Next Appt Details Follow Up: 2 Months, Reason: OV Provider Name:Yung Delgado, 11/01/2024 10:45:00 AM, [address] [facility] [address], [place], [address], Provider Name:Yung Benjaminne, 08/06/2025 02:30:00 PM, [address] [place] [address] [address] [place], [address], Progress Notes * Dyan WANG MDOB:1950 (73 yo F)Acc No.[id number]:08/05/2024 Progress Notes Patient: Dyan AHUMADA Provider: Martha Delgado MD :1950 A ge:73 Y S ex:Female Date:08/05/2024 Address:[address] [place] [address], [place] [id number] Subjective: * Chief Complaints: * A nnual Exam * HPI: D epression Screening: She returns to the office at the age of 73 for her annual physical examination. Since her last visit she has been healthy and well. She has no new complaints.Her blood pressure was stable. She has gained 2 pounds. Body mass index is 19. She is breathing comfortably.? She is taking all of her medications. She denies any bleeding. No change in her regimen was necessary today.Comprehensive blood work was available and was reviewed with her. PHQ-9 L ittle interest or pleasure in doing things?Not at all F eeling down, depressed, or hopeless N ot at all T rouble falling or staying asleep, or sleeping too much N ot at all F eeling tired or having little energy N ot at all P oor appetite or overeating N ot at all F eeling bad about yourself or that you are a failure, or have let yourself or your family down N ot at all T rouble concentrating on things, such as reading the newspaper or watching television N ot at all M oving or speaking so slowly that other people could have noticed; or the opposite, being so fidgety or restless that you have been moving around a lot more than usual N ot at all T houghts that you would be better off or of hurting yourself in some way N ot at all T otal Score 0 C OVID-19 Screening: mammo sept, doing ok bp ok. Questions H ave you had any new onset fever, chills, cough, congestion, sore throat, shortness of breath, muscle aches? N o S GISELL Questions: SDOH Questions I n the past year have you been worried about losing your housing? N o I n the past year have you or any family members you live with been unable to get any of the following when it was really needed? Check all that apply: N one * ROS: G eneral/Constitutional: pain o nly normal aches and pains. C hills d enies.?Fatigue a dmits. F ever d enies. E NT: Decreased hearing d enies. R espiratory: Cough d enies. C ardiovascular: Chest pain with exertion d enies. D yspnea on exertion?denies. S hortness of breath d enies. G astrointestinal: Constipation d enies. D ecreased appetite d enies.?Diarrhea d enies. H eartburn d enies. N ausea d enies. R ectal bleeding?denies. V omiting d enies. H ematology: bruising [...] disease * Hospitalization/Major Diagno stic Procedure: D maira Past Hospitalization * Family History: F ather: 64 yrs, Overweight, coronary artery disease, myocardial infarction, asbestosis, diagnosed with CVD. M other: 68 yrs, Recurrent lung cancer, nonsmoker, diagnosed with Cancer. C bharaten: alive. D bibianaer(s): alive, Oldest daughter had breast cancer, diagnosed with Cancer. S blaire: alive. M aternal Grand Mother: , breast cancer. 2 brother(s) - healthy. 2 daughter(s) . . Her father from heart disease. Her mother from lung cancer. She has 2 brothers who are healthy and well. She has no sisters. She is not aware of any family history of mental illness or addiction or substance abuse. * Social History: T obacco Use: T obacco Control (Standard) T obacco use: N onsmoker A dditional Findings: Tobacco non-user A ggressive nonsmoker D rugs/Alcohol: D rugs H ave you used drugs other than those for medical reasons in the past 12 months? N o D rug/Alcohol: A DAVID-C (Standard) D id you have a drink containing alcohol in the past year? Y es H ow often did you have six or more drinks on one occasion in the past year? 4 or more times a week (4 points) H ow many drinks did you have on a typical day when you were drinking in the past year? 1 or 2 drinks (0 point) H ow often did you have a drink containing alcohol in the past year? N ever (0 point) P oints 4 I nterpretation P ositive S he is and has 2 daughters. One daughter had stage I breast cancer at the age of 43. She has one grandchild. The daughter has refused genetic testing in the past feeling a loss of insurance coverage. * Medications: T akingTriamterene-HCTZ 37.5-25 MG Capsule TAKE 1 CAPSULE DAILY IN THEMORNING Atorvastatin Calcium 40 MG Tablet TAKE 1 TABLET ONCE DAILY Atenolol 100 MG Tablet TAKE 1 TABLET TWICE A DAY Medication List reviewed and reconciled with the patientTaking Triamterene-HCTZ 37.5-25 MG Capsule TAKE 1 CAPSULE DAILY IN THEMORNING Taking Atorvastatin Calcium 40 MG Tablet TAKE 1 TABLET ONCE DAILY Taking Atenolol 100 MG Tablet TAKE 1 TABLET TWICE A DAY Medication List reviewed and reconciled with the patient * Allergies: N o Known Drug AllergyNo Known Food Allergyno[Allergies Verified] Objective: * Vitals: H t: 65, Wt:120, BMI:19.97, BP:136/75, HR:64, Temp:97.2, Wt-k.43. * P ast Orders: Lab:Complete Blood Count Aut o Diff * Collection Date 07/30/2024 11/06/2023 07/26/2023 Collection Time 10:27 AM 10:33 AM 09:49 AM Order Date 07/30/2024 11/06/2023 07/26/2023 White Blood Count 8.3 (Ref Range: 4.8-10.8 X10*3/uL) 7.5 (Ref Range: 4.8-10.8 X10*3/uL) 7.1 (Ref Range: 4.8-10.8 X10*3/uL) Red Blood Count 4.40 (Ref Range: 4.20-5.50 X10*6/uL) 4.41 (Ref Range: 4.20-5.50 X10*6/uL) 4.41 (Ref Range: 4.20-5.50 X10*6/uL) Hemoglobin 14.8 (Ref Range: 12.0-16.0 g/dl) 14.6 (Ref Range: 12.0-16.0 g/dl) 14.7 (Ref Range: 12.0-16.0 g/dl) Hematocrit 44.7 (Ref Range: 37.0-47.0 %) 44.7 (Ref Range: 37.0-47.0 %) 43.7 (Ref Range: 37.0-47.0 %) Mean Corpuscular Volume 101.6 H (Ref Range: 80.0-98.0 fL) 101.4 H (Ref Range: 80.0-98.0 fL) 99.1 H (Ref Range: 80.0-98.0 fL) Mean Corpuscular Hemoglobin 33.6 H (Ref Range: 27.0-33.0 pg) 33.1 H (Ref Range: 27.0-33.0 pg) 33.3 H (Ref Range: 27.0-33.0 pg) Mean Corpuscular HGB Conc 33.1 (Ref Range: 31.0-35.0 g/dl) 32.7 (Ref Range: 31.0-35.0 g/dl) 33.6 (Ref Range: 31.0-35.0 g/dl) Red Cell Distribution Width 12.5 (Ref Range: 11.0-16.0 %) 12.4 (Ref Range: 11.0-16.0 %) 11.7 (Ref Range: 11.0-16.0 %) Platelet Count 276 (Ref Range: 160-400 X10*3/uL) 268 (Ref Range: 160-400 X10*3/uL) 285 (Ref Range: 160-400 X10*3/uL) Mean Platelet Volume 9.1 L (Ref Range: 9.4-12.3 fL) 9.2 L (Ref Range: 9.4-12.3 fL) 9.1 L (Ref Range: 9.4-12.3 fL) Neutrophils Percent Auto 53.3 (Ref Range: 45-73 %) 49.9 (Ref Range: 45-73 %) 54.3 (Ref Range: 45-73 %) Imm Gran Pct Auto 0.6 H (Ref Range: 0.0-0.4 %) 0.7 H (Ref Range: 0.0-0.4 %) 0.6 H (Ref Range: 0.0-0.4 %) Lymphocytes Percent Auto 24.4 (Ref Range: 20-40 %) 27.7 (Ref Range: 20-40 %) 23.5 (Ref Range: 20-40 %) Monocytes Percent Auto 13.3 H (Ref Range: 2-11 %) 13.3 H (Ref Range: 2-11 %) 13.8 H (Ref Range: 2-11 %) Eosinophils Percent Auto 7.4 H (Ref Range: 0-4 %) 7.7 H (Ref Range: 0-4 %) 7.0 H (Ref Range: 0-4 %) Basophils Percent Auto 1.0 (Ref Range: 0-2 %) 0.7 (Ref Range: 0-2 %) 0.8 (Ref Range: 0-2 %) NRBC Pct Auto 0.0 (Ref Range: 0.0-0.2 /100WBC) 0.0 (Ref Range: 0.0-0.2 /100WBC) 0.0 (Ref Range: 0.0-0.2 /100WBC) Neutrophils Absolute Auto 4.4 (Ref Range: 2.0-8.3 x10*3/uL) 3.7 (Ref Range: 2.0-8.3 x10*3/uL) 3.9 (Ref Range: 2.0-8.3 x10*3/uL) Imm Gran Abs Auto 0.05 H (Ref Range: 0.00-0.03 X10*3/uL) 0.05 H (Ref Range: 0.00-0.03 X10*3/uL) 0.04 H (Ref Range: 0.00-0.03 X10*3/uL) Lymphocytes Absolute Auto 2.0 (Ref Range: 1.2-4.9 X10*3/uL) 2.1 (Ref Range: 1.2-4.9 X10*3/uL) 1.7 (Ref Range: 1.2-4.9 X10*3/uL) Monocytes Absolute Auto 1.1 (Ref Range: 0.1-1.2 X10*3/uL) 1.0 (Ref Range: 0.1-1.2 X10*3/uL) 1.0 (Ref Range: 0.1-1.2 X10*3/uL) Eosinophils Absolute Auto 0.6 H (Ref Range: 0.0-0.4 X10*3/uL) 0.6 H (Ref Range: 0.0-0.4 X10*3/uL) 0.5 H (Ref Range: 0.0-0.4 X10*3/uL) Basophils Absolute Auto 0.1 (Ref Range: 0.0-0.2 X10*3/uL) 0.1 (Ref Range: 0.0-0.2 X10*3/uL) 0.1 (Ref Range: 0.0-0.2 X10*3/uL) NRBC Abs Auto 0.000 (Ref Range: 0.0-0.012 X10*3/uL) 0.000 (Ref Range: 0.0-0.012 X10*3/uL) 0.000 (Ref Range: 0.0-0.012 X10*3/uL) * Lab:Comprehensive [place]. [facility] l Fast * Collection Date 07/30/2024 11/06/2023 07/26/2023 Collection Time 10:27 AM 10:33 AM 09:49 AM Order Date 07/30/2024 11/06/2023 07/26/2023 Sodium 143 (Ref Range: 135-145 mmol/L) 144 (Ref Range: 135-145 mmol/L) 142 (Ref Range: 135-145 mmol/L) Bilirubin Total 1.4 H (Ref Range: 0.0-1.0 mg/dL) 1.6 H (Ref Range: 0.0-1.0 mg/dL) 1.8 H (Ref Range: 0.0-1.0 mg/dL) Aspartate Amino Transferase 31 (Ref Range: 5-31 U/L) 39 H (Ref Range: 5-31 U/L) 26 (Ref Range: 5-31 U/L) Alanine Aminotransferase 29 (Ref Range: 0-31 U/L) 33 H (Ref Range: 0-31 U/L) 24 (Ref Range: 0-31 U/L) Total Protein 7.5 (Ref Range: 6.5-8.0 g/dL) 7.6 (Ref Range: 6.5-8.0 g/dL) 7.5 (Ref Range: 6.5-8.0 g/dL) Albumin Level 4.5 (Ref Range: 3.5-5.0 g/dL) 4.3 (Ref Range: 3.5-5.0 g/dL) 4.3 (Ref Range: 3.5-5.0 g/dL) Alkaline Phosphatase 72 (Ref Range: 39-117 U/L) 79 (Ref Range: 39-117 U/L) 74 (Ref Range: 39-117 U/L) Potassium 3.9 (Ref Range: 3.3-5.1 mmol/L) 3.6 (Ref Range: 3.3-5.1 mmol/L) 3.6 (Ref Range: 3.3-5.1 mmol/L) Chloride 104 (Ref Range: 96-108 mmol/L) 105 (Ref Range: 96-108 mmol/L) 103 (Ref Range: 96-108 mmol/L) Carbon Dioxide 31 H (Ref Range: 22-29 mmol/L) 27 (Ref Range: 22-29 mmol/L) 28 (Ref Range: 22-29 mmol/L) Anion Gap 12 (Ref Range: 12-20) 16 (Ref Range: 12-20) 15 (Ref Range: 12-20) Blood Urea Nitrogen 19 H (Ref Range: 9-16 mg/dL) 19 H (Ref Range: 9-16 mg/dL) 17 H (Ref Range: 9-16 mg/dL) Creatinine 0.83 (Ref Range: 0.5-1.4 mg/dL) 0.86 (Ref Range: 0.5-1.4 mg/dL) 0.83 (Ref Range: 0.5-1.4 mg/dL) Estimated Glomerular Filt Rate > 60 > 60 > 60 Glucose Fasting 105 H (Ref Range: 60-99 mg/dL) 92 (Ref Range: 60-99 mg/dL) 81 (Ref Range: 60-99 mg/dL) Calcium 10.1 (Ref Range: 8.4-10.2 mg/dL) 10.5 H (Ref Range: 8.4-10.2 mg/dL) 9.6 (Ref Range: 8.4-10.2 mg/dL) * Lab:URINE DIP STICK * Collection Date 08/05/2024 08/01/2023 11/12/2021 Order Date 08/05/2024 08/01/2023 11/12/2021 Result: Normal SG 1.015 (Ref Range: 1.005 - 1.025) 1.020 (Ref Range: 1.005 - 1.025) 1.010 pH 6.0 (Ref Range: 5.0 - 9.0) 6.0 (Ref Range: 5.0 - 9.0) 6 GENOVEVA 70 + (Ref Range: Negative -) 70 (Ref Range: Negative -) neg NIT Negative (Ref Range: Negative -) Negative (Ref Range: Negative -) neg PRO 15 (Ref Range: Negative - Trace) 15 (Ref Range: Negative - Trace) trace GLU 1 (Ref Range: Negative -) Negative (Ref Range: Negative -) normal KET Negative (Ref Range: Negative -) Negative (Ref Range: Negative -) neg UBG 0.2 (Ref Range: 0.1 - 1.8) 0.2 (Ref Range: 0.1 - 1.8) normal MIGUEL ANGEL 1 (Ref Range: 0.2 - 1.3) Negative (Ref Range: 0.2 - 1.3) neg BLD 50 (Ref Range: Negative -) Negative (Ref Range: Negative -) neg Menstrating NR NR no * Lab:Vitamin D 25-OH Total * Collection Date 07/30/2024 11/06/2023 Collection Time 10:27 AM 10:33 AM Order Date 07/30/2024 11/06/2023 Vitamin D 25-OH Total 153.9 (Ref Range: >30 ng/mL) 38.4 (Ref Range: >30 ng/mL) * Lab:Lipid Panel * Collection Date 07/30/2024 11/06/2023 07/26/2023 Collection Time 10:27 AM 10:33 AM 09:49 AM Order Date 07/30/2024 11/06/2023 07/26/2023 Triglycerides 146 (Ref Range: <150 mg/dL) 167 H (Ref Range: <150 mg/dL) 164 H (Ref Range: <150 mg/dL) Cholesterol 213 H (Ref Range: <200 mg/dL) 173 (Ref Range: <200 mg/dL) 198 (Ref Range: <200 mg/dL) LDL Cholesterol Calculated 115 H (Ref Range: <100 mg/dL) 78 (Ref Range: <100 mg/dL) 104 H (Ref Range: <100 mg/dL) HDL Cholesterol 69 (Ref Range: >40 mg/dL) 62 (Ref Range: >40 mg/dL) 62 (Ref Range: >40 mg/dL) * Examination: G eneral Examination: GENERAL APPEARANCE: p leasant, well nourished, well developed, in no acute distress, calm and relaxed, underweight, woman. HEAD: a traumatic, normocephalic. EYES: e [...] c lear to auscultation . BREASTS: n o masses palpable bilaterally, no drainage, no discharge, nontender. ABDOMEN: b owel sounds normal, no ascites, no organomegaly, no mass. RECTAL EXAM: n ot examined. MUSCULOSKELETAL: e xtremities unremarkable, no clubbing, cyanosis or edema. PERIPHERAL PULSES: n ormal. NEUROLOGIC: a lert and oriented, cranial nerves 2-12 grossly intact, deep tendon reflexes 2+ symmetrical, motor strength normal upper and lower extremities, sensory exam intact. PSYCH: a lert, oriented. Assessment: * Assessment: 1. E ssential hypertension - I10 (Primary) N otes :Her blood pressure is stable in the normal range and no change in her therapy was needed. 2 . M ixed hyperlipidemia - E78.2 N otes :Her lipids are currently stable. Her body mass index is 19. We discussed her diet at length today. 3 . U nderweight - R63.6 N otes :Her body mass index is now 19. Her nutrition seems good.We discussed her diet at length today. 4 . M acrocytosis - D75.89 N otes :Her mean cell volume is slightly elevated at 101.6. This value will be followed. If necessary will be investigated with a reticulocyte count, B12 and folic acid. Plan: * Treatment: * Labs: * L ab: URINE DIP STICK (Collection Date & Time - 08/05/2024) Value Reference Range S G 1.015 1.005 - 1.025 * p H 6.0 5.0 - 9.0 * L EU 70 + Negative - * N IT Negative Negative - * P RO 15 Negative - Trace * G NIA 1 Negative - * K ET Negative Negative - * U BG 0.2 0.1 - 1.8 * B IL 1 0.2 - 1.3 * B LD 50 Negative - * Procedure Codes: 8 1002 URINE-NO MICRO * Preventive Medicine: Counseling: C are goal follow-up plan: Counseling for abnormal BMI given Y es Below Normal BMI Follow-up D ietary education for weight gain, Dietary management education, guidance, and counseling, Feeding regime, Lifestyle education regarding diet, Nutrition / feeding management, Prescribed diet education, Special diet education, Intervention, Order not done: Medical or Other reason not done * Follow Up: 2 Months (Reason: OV) * Images: * Sign off status: Completed true * Provider: Martha Delgado MD Date: 0 08/05/2024 Generated for Tonie meng/Rolan/Dominik on: 0 10/22/2024 10:30 AM EDT History and Physical Notes * HPI (History of Present Illness) Category Sub-Category Detail Notes Depression Screening PHQ-9 Little inte rest or pleasure in doing things: Not at all Feeling down, depressed, or hopeless: No t at all Trouble falling or staying asleep, or sl eeping too much: Not at all Feeling tired or having little energy: N ot at all Poor appetite or overeating: Not at all Feeling bad about yourself o r that you are a failure, or have let yourself or your family down: Not at all Trouble concentrating on thi ngs, such as reading the newspaper or watching television: Not at all Moving or speaking so slowly that other people could have noticed; or the opposite, being so fidgety or restless that you have been moving around a lot more than usual: Not at all Thoughts that you would be b catracho off or of hurting yourself in some way: Not at all Total Score: 0 COVID-19 Screening Questions Have you had any new onset fever, chills, cough, congestion, sore throat, shortness of breath, muscle aches?: No SDOH Questions SDOH Questions In the past year have you been worried about losing your housing?: No In the past year have you or any family members you live with been unable to get any of the following when it was really needed? Check all that apply:: None Examination Category Sub-Category Detail Notes General Examination GENERAL APPEARANCE: pleasant , well nourished, well developed, in no acute distress, calm and relaxed, underweight, woman HEAD: atraumatic, normocep halic EYES: eomi, [...] lesion s, anicteric PERIPHERAL PULSES: normal BREASTS: no masses palpable b ilaterally, no drainage, no discharge, nontender MUSCULOSKELETAL: extremities unremark able, no clubbing, cyanosis or edema LYMPH NODES: no enlarged lymph no louisa,spleen normal RECTAL EXAM: not examined PSYCH: alert, oriented ORAL CAVITY: normal, unremarkable
--- OUTSIDE RECORDS SUMMARY | 2024-08-27 11:00 | XMS_ITS ---
Author Organization Yung Delgado III, MD Address [address] [place] [address] [address] [address] Care Team Providers Care [employer] Docent Name Role Phone Yung Delgado Primary Care Provider Allergies Allergen (clinical drug ingredient) Drug/Non Drug Allergy documented on EMR Reaction Allergy Type Onset Date Status No Known Drug Allergy Unknown Drug Allergy Active No Known Food Allergy Unknown Drug Allergy Active REASON FOR VISIT Annual Exam Medications Medication SIG (Take, Route, Frequency, Duration) Notes Start Date End Date Status Atenolol 100 MG TAKE 1 TABLET TWICE A DAY Active Triamterene-HCTZ 37.5-25 MG TAKE 1 CAPSU LE DAILY IN THEMORNING Active Atorvastatin Calcium 40 MG TAKE 1 TABLET ONCE DAILY Active Social History Tobacco Use: Social History Observation Description Date Details (start date - stop date) Never Smoker NA - NA Sex Assigned At : Social History Observation Description Sex Assigned At Female Tobacco Control (Standard) Question Answer Notes Tobacco use: Nonsmoker Additional Findings: Tobacco non-user Aggressive nonsmoker Vital Signs Temperature 97.2 degrees Fahrenheit 08/28/19 25 Blood pressure systolic 139 mm Hg 08/28/19 25 Blood pressure diastolic 74 mm Hg 025 Heart Rate 63 /min 08/27/2024 Height 65 in 08/27/2024 Weight 117 lbs 08/27/2024 BMI 19.47 kg/m2 08/27/2024 Encounters Encounter Location Date Provider Diagnosis Yung Delgado III, MD [address] [place] [address] [place] [address] 08/27/2024 Yung Delgado Mixed hyperlipidemia E78.2 ; Underweight R63.6 ; Vitamin D deficiency E55.9 ; Macrocytosis D75.89 ; Essential hypertension I10 and Acquired absence of both cervix and uterus Z90.710 Assessments Encounter Date Diagnosis (ICD Code) Assessment Notes Treat ment Notes Treatment Clinical Notes 08/27/2024 Mixed hyperlipidemia (ICD-10 - E78.2) Her lipids are well controlled and no change in her regimen as necessary. 08/27/2024 Underweight (ICD-10 - R63.6) She weighs 117 pounds having lost 3. Her BMI is 17. She seems healthy and well with good nutrition. 08/27/2024 Vitamin D deficiency (ICD-10 - E55.9) Her level is 156. Her calcium is normal. I recommended a dose of 1000 units daily. 08/27/2024 Macrocytosis (ICD-10 - D75.89) Her mean cell volume remains slightly elevated. We will continue to observe this. Her hematocrit is normal. 08/27/2024 Essential hypertension (ICD-10 - I10) Her blood pressure is stable in the normal range and no change in her therapy was needed. 08/27/2024 Acquired absence of both cervix and uterus (ICD-10 - Z90.710) She declined a OPTICAL ENGINEERING TECHNICIAN referral, pelvic exam, rectal exam and breast examination colonoscopy or cologard today. Plan Of Treatment Medication Medication Name Sig Start Date Stop Date Notes Atenolol 100 MG TAKE 1 TABLET TWICE A DAY Triamterene-HCTZ 37.5-25 MG TAKE 1 CAPSU LE DAILY IN THEMORNING Atorvastatin Calcium 40 MG TAKE 1 TABLET ONCE DAILY Pending Test Test Name Order Date PROFILE, FASTING (COMPREHENSIVE METABOLI C) 08/27/2024 CBC w DIFF 08/27/2024 Lipid Panel 08/27/2024 Vitamin D 25-OH Total 08/27/2024 Next Appt Details Follow Up: 2 Months, Reason: OV Provider Name:Yung Delgado, 11/01/2024 10:45:00 AM, [address] [place] [address] [place], [address], Provider Name:Yung Delgado, 08/06/2025 02:30:[address] [place], [address], Progress Notes * Dyan WANG MDOB:1950 (74 yo F)Acc No.[id number]:08/27/2024 Progress Notes Patient: Dyan AHUMADA Provider: Martha Delgado MD :1950 A ge:73 Y S ex:Female Date:08/27/2024 Address:[address] [place] [address], [address] Subjective: * Chief Complaints: * A nnual Exam * HPI: C OVID-19 Screening: He returns to the office at the age of 74 for her annual physical examination. She feels healthy and well. Her blood work was reviewed. No changes in her regimen were needed. Her blood pressure was well controlled. She does not desire to have pelvic examinations as she says she has no organs remaining. Her appetite is good. She has had no intercurrent illnesses. Questions H ave you had any new onset fever, chills, cough, congestion, sore throat, shortness of breath, muscle aches? N o * ROS: G eneral/Constitutional: pain o nly [...] enies. D iarrhea d enies. H eartburn d enies. N ausea d enies. R ectal bleeding [...] diagnosed with Cancer. S iblings: alive. M aternal Grand Mother: , breast [...] dditional Findings: Tobacco non-user A ggressive nonsmoker S he is and has 2 daughters. One daughter had stage I breast cancer at the age of 43. She has one grandchild. The daughter has refused genetic testing in the past feeling a loss of insurance coverage. * Medications: T akingAtenolol 100 MG Tablet TAKE 1 TABLET TWICE A DAY Atorvastatin Calcium 40 MG Tablet TAKE 1 TABLET ONCE DAILY Triamterene-HCTZ 37.5-25 MG Capsule TAKE 1 CAPSULE DAILY IN THEMORNING Medication List reviewed and reconciled with the patientTaking Atenolol 100 MG Tablet TAKE 1 TABLET TWICE A DAY Taking Atorvastatin Calcium 40 MG Tablet TAKE 1 TABLET ONCE DAILY Taking Triamterene-HCTZ 37.5-25 MG Capsule TAKE 1 CAPSULE DAILY IN THEMORNING Medication List reviewed and reconciled with the patient * Allergies: N o Known Drug AllergyNo Known Food Allergyno[Allergies Verified] Objective: * Vitals: H t: 65, Wt:117, BMI:19.47, BP:139/74, HR:63, Temp:97.2, Wt-k.07. * P ast Orders: Lab:Complete Blood Count [...] X10*3/uL) 0.000 (Ref Range: 0.0-0.012 X10*3/uL) * Lab:[facility] * Collection Date 07/30/2024 11/06/2023 07/26/2023 Collection [...] mg/dL) 9.6 (Ref Range: 8.4-10.2 mg/dL) * Lab:Lipid Panel * Collection Date 07/30/2024 [...] mg/dL) 62 (Ref Range: >40 mg/dL) * Lab:Vitamin D 25-OH Total * Collection Date 07/30/2024 11/06/2023 Collection Time 10:27 AM 10:33 AM Order Date 07/30/2024 11/06/2023 Vitamin D 25-OH Total 153.9 (Ref Range: >30 ng/mL) 38.4 (Ref Range: >30 ng/mL) * Lab:URINE DIP STICK * Collection Date [...] -) neg Menstrating NR NR no * Examination: G eneral Examination: GENERAL APPEARANCE: [...] LUNGS: c lear to auscultation . BREASTS: N ot examined. ABDOMEN: b owel sounds normal, [...] * Assessment: 1. M ixed hyperlipidemia - E78.2 (Primary) N otes :Her lipids are well controlled and no change in her regimen as necessary. 2 . U nderweight - R63.6 N otes :She weighs 117 pounds having lost 3. Her BMI is 17. She seems healthy and well with good nutrition. 3 . V itamin D deficiency - E55.9 N otes :Her level is 156. Her calcium is normal. I recommended a dose of 1000 units daily. 4 . M acrocytosis - D75.89 N otes :Her mean cell volume remains slightly elevated. We will continue to observe this. Her hematocrit is normal. 5 . E ssential hypertension - I10 N otes :Her blood pressure is stable in the normal range and no change in her therapy was needed. 6 . A cquired absence of both cervix and uterus - Z90.710 N otes :She declined a OPTICAL ENGINEERING TECHNICIAN referral, pelvic exam, rectal exam and breast examination colonoscopy or cologard today. Plan: * Treatment: 2. U nderweight L AB: PROFILE, FASTING (COMPREHENSIVE METABOLIC) L AB: CBC w DIFF L AB: Lipid Panel L AB: Vitamin D 25-OH Total 3. V itamin D deficiency L AB: PROFILE, FASTING (COMPREHENSIVE METABOLIC) L AB: CBC w DIFF L AB: Lipid Panel L AB: Vitamin D 25-OH Total 4. M acrocytosis L AB: PROFILE, FASTING (COMPREHENSIVE METABOLIC) L AB: CBC w DIFF L AB: Lipid Panel L AB: Vitamin D 25-OH Total 5. O thers Continue Atenolol Tablet, 100 MG, TAKE 1 TABLET TWICE A DAY; C ontinue Atorvastatin Calcium Tablet, 40 MG, TAKE 1 TABLET ONCE DAILY; C ontinue Triamterene-HCTZ Capsule, 37.5-25 MG, TAKE 1 CAPSULE DAILY IN THEMORNING. * Procedure Codes: * Preventive Medicine: Counseling: [...] * Provider: Martha Delgado MD Date: 0 08/27/2024 Generated for Printi ng/Famitchg/eTransmitting on: 0 10/22/2024 10:30 AM EDT History and Physical Notes * HPI (History of Present Illness) Category Sub-Category Detail Notes COVID-19 Screening Questions Have you had any new onset fever, chills, cough, congestion, sore throat, shortness of breath, muscle aches?: No Examination Category Sub-Category Detail Notes General Examination [...] lesion s, anicteric PERIPHERAL PULSES: normal BREASTS: Not examined MUSCULOSKELETAL: extremities unremark able, no clubbing, cyanosis or edema LYMPH NODES: no enlarged lymph no louisa,spleen normal RECTAL EXAM: not examined PSYCH: alert, oriented ORAL CAVITY: normal, unremarkable
--- OUTSIDE RECORDS SUMMARY | 2024-10-22 10:30 | XMS_ITS | Patient Health Record ---
Author Organization Yung Delgado III, MD Address [address] [place] [address] [address] [address] Care Team Providers Care Manager Of Corporate Communications Name Role Phone Yung Delgado Primary Care Provider Allergies Allergen (clinical drug ingredient) Drug/Non Drug Allergy documented on EMR Reaction Allergy Type Onset Date Status No Known Drug Allergy Unknown Drug Allergy Active No Known Food Allergy Unknown Drug Allergy Active Results Component Value Reference Range Notes Complete Blood Count Auto Di ff Reviewed date:11/12/2023 07:29:20 AM Interpretation: Performing Lab:[facility], [address] [place] [address] Notes/Report: White Blood Count 7.5 4.8-10.8 X10*3/uL [...] NRBC Abs Auto 0.000 0.0-0.012 X10*3/uL Comprehensive Bennett. Panel Fa st Reviewed date:11/12/2023 07:29:20 AM Interpretation: Performing Lab:[address] [address] Notes/Report: Sodium 144 135-145 mmol/L Potassium 3.6 3.3-5.1 mmol/L Chloride 105 96-108 mmol/L Carbon Dioxide 27 22-29 mmol/L Anion Gap 16 12-20 Blood Urea Nitrogen 19 9-16 mg/dL Creatinine 0.86 0.5-1.4 mg/dL Estimated Glomerular Filt Rate > 60 NOTE: For -Pakistani individuals, multiply the result by 1.210. Chronic [...] Panel Reviewed date:11/12/2023 07:29:20 AM Interpretation: Performing Lab:[address] [place] [address] Notes/Report: Triglycerides 167 <150 mg/dL Desirable Triglyceride: [...] Total Reviewed date:11/12/2023 07:29:20 AM Interpretation: Performing Lab:[address] [address] Notes/Report: Vitamin D 25-OH Total 38.4 >30 [...] confirmed with another method such as LC-MS/MS. MAMMOGRAM DIGITAL BILATERAL SCREEN Reviewed date:08/05/2024 02:14:23 PM Interpretation:undefined Performing Lab: Notes/Report: undefined MM tomosynthesis screening B I Reviewed date:03/05/2024 04:06:42 PM Interpretation: Performing Lab: Notes/Report: [address] [place] [address] Mammography Report Signed Patient: Dyan Wang MR#: [id number] : 1950 Acct:[id number] Age/Sex: 73 / F ADM Date: 11/14/23 Loc: MAMMO Attending Dr: Yung Delgado MD Ordering Physician: Yung Delgado MD Results: 2Benign Findings Date of Service: 11/14/23 Follow Up: 1 Year From [facility] ina Mammogram Procedure(s): MM tomosynthesis screening BI Accession Number(s): [id number] cc: Yung Delgado MD EXAMINATION: MM SCREENING [...] 11/27/23 1607 DD/ 0920 TD/TT: 11/14/23 0935 Manager Sas: Syl [facility] [address] [place] [address] Mammography Report Signed Patient: Dyan Wang MR#: [id number] : 1950 Acct:[id number] Age/Sex: 73 / F ADM Date: 11/14/23 Loc: MALDONADOO Attending Dr: Yung Delgado MD Ordering Physician: Yung Delgado MD Results: 2Benign Findings Date of Service: 11/14/23 Follow Up: 1 Year From Orig inal Mammogram Procedure(s): MM tomosynthesis screening BI Accession Number(s): [id number] cc: Yung Delgado MD EXAMINATION: MM SCREENING [...] Merry Bowers DO 11/27/2023 04:07 PM EDT RP Dictated By: Merry Bowers DO Signed By: <Electronically signed by Merry Bowers DO in OV> 11/27/23 1607 DD/ 0920 TD/TT: 11/14/23 0935 Manager Sas: XR DEXA axial skeleton Reviewed date:03/05/2024 04:06:42 PM Interpretation: Performing Lab: Notes/Report: [facility] [address] [place] [address] Mammography Report Signed Patient: Dyan Wang MR#: [id number] : 1950 Acct:[id number] Age/Sex: 73 / F ADM Date: 11/14/23 Loc: HO.MAMMO Attending Dr: Yung Delgado MD Ordering Physician: Yung Delgado MD Results: Date of Service: 11/14/23 Follow Up: Procedure(s): XR DEXA axial skeleton Accession Number(s): [id number] cc: Yung Delgado MD EXAMINATION: BONE DENSITOMETRY CLINICAL INDICATION: Osteopenia. COMPARISON: This is the patient's baseline examination. TECHNIQUE: Using a [employer] DXA System (software version: 13.1) manufactured by [employer], dual-energy x-ray absorptiometry was performed of the [...] 11/15/23 1508 DD/ 0945 TD/TT: 11/14/23 1012 Manager Sas: MILLY [place] [facility] [address] [place] [address] Mammography Report Signed Patient: Dyan Wang MR#: [id number] : 1950 Acct:[id number] Age/Sex: 73 / F ADM Date: 11/14/23 Loc: HO.MAMMO Attending Dr: Yung Delgado MD Ordering Physician: Yung Delgado MD Results: Date of Service: 11/14/23 Follow Up: Procedure(s): XR DEX A axial skeleton Accession Number(s): [id number] cc: Yung Delgado MD EXAMINATION: BONE DENSITOMETRY CLINICAL INDICATION: Osteopenia. COMPARISON: This is the patient' s baseline examination. TECHNIQUE: Using a [employer] DXA System (software version: 13.1) Streetline, dual-energy x-ray absorptiometry was performed of the [...] 11/15/23 1508 DD/ 0945 TD/TT: 11/14/23 1012 Manager Sas: MILLY Complete Blood Count Auto Di ff Reviewed date:08/07/2024 01:08:21 PM Interpretation: Performing Lab:[facility], [address] [place] [phone] Notes/Report: White Blood Count 8.3 4.8-10.8 X10*3/uL Red Blood Count 4.40 4.20-5.50 X10*6/uL Hemoglobin 14.8 12.0-16.0 g/dl Hematocrit 44.7 37.0-47.0 % Mean Corpuscular Volume 101.6 80.0-98.0 fL Mean Corpuscular Hemoglobin 33.6 27.0-33.0 pg Mean Corpuscular HGB Conc 33.1 31.0-35.0 g/dl Red Cell Distribution Width 12.5 11.0-16.0 % Platelet Count 276 160-400 X10*3/uL Mean Platelet Volume 9.1 9.4-12.3 fL Neutrophils Percent Auto 53.3 45-73 % Imm Gran Pct Auto 0.6 0.0-0.4 % Lymphocytes Percent Auto 24.4 20-40 % Monocytes Percent Auto 13.3 2-11 % Eosinophils Percent Auto 7.4 0-4 % Basophils Percent Auto 1.0 0-2 % NRBC Pct Auto 0.0 0.0-0.2 /100WBC Neutrophils Absolute Auto 4.4 2.0-8.3 x10*3/uL Imm Gran Abs Auto 0.05 0.00-0.03 X10*3/uL Lymphocytes Absolute Auto 2.0 1.2-4.9 X10*3/uL Monocytes Absolute Auto 1.1 0.1-1.2 X10*3/uL Eosinophils Absolute Auto 0.6 0.0-0.4 X10*3/uL Basophils Absolute Auto 0.1 0.0-0.2 X10*3/uL NRBC Abs Auto 0.000 0.0-0.012 X10*3/uL Comprehensive Bennett. Panel Fa st Reviewed date:08/07/2024 01:08:21 PM Interpretation: Performing Lab:[facility], [address] [place] [phone] Notes/Report: Sodium 143 135-145 mmol/L Potassium 3.9 3.3-5.1 mmol/L Chloride 104 96-108 mmol/L Carbon Dioxide 31 22-29 mmol/L Anion Gap 12 12-20 Blood Urea Nitrogen 19 9-16 mg/dL Creatinine 0.83 0.5-1.4 mg/dL Estimated Glomerular Filt Rate > 60 Chronic Kidney Disease: Estimated GFR < 60 mL/min/1.73m2 Severe Kidney Disease: Estimated GFR < 15 mL/min/1.73m2 Glucose Fasting 105 60-99 mg/dL A fasting glucose from 100-125 mg/dl is considered impaired (pre-diabetes). Calcium 10.1 8.4-10.2 mg/dL Bilirubin Total 1.4 0.0-1.0 mg/dL Aspartate Amino Transferase 31 5-31 U/L Alanine Aminotransferase 29 0-31 U/L Total Protein 7.5 6.5-8.0 g/dL Albumin Level 4.5 3.5-5.0 g/dL Alkaline Phosphatase 72 39-117 U/L Lipid Panel Reviewed date:08/07/2024 01:08:21 PM Interpretation: Performing Lab:[facility], [address] [place] [phone] Notes/Report: Triglycerides 146 <150 mg/dL Desirable Triglyceride: less than 150 mg/dL Borderline High Triglyceride 150-199 mg/dL High Triglyceride: 200-499 mg/dL Very High Triglyceride: greater than or equal to 5OO mg/dL Cholesterol 213 <200 mg/dL Desirable Cholesterol: less than 200 mg/dL Borderline High Cholesterol: 200-239 mg/dL High Cholesterol: greater than 239 mg/dL LDL Cholesterol Calculated 115 <100 mg/dL Desirable LDL: less than 100 mg/dL Near Optimal/Above Optimal LDL: 110-129 mg/dL Borderline High LDL: 130-159 mg/dL High LDL: 160-189 mg/dL Very High LDL: greater than or equal to 190 mg/dL HDL Cholesterol 69 >40 mg/dL Desirable HDL: greater than 40 mg/dL Note: This HDL assay may give artificially low results in patients with liver disease. Vitamin D 25-OH Total Reviewed date:08/07/2024 01:08:21 PM Interpretation: Performing Lab:[facility], [address] [place] [phone] Notes/Report: Vitamin D 25-OH Total 153.9 >30 ng/mL Health Based Reference Values* < 20 ng/mL Deficient 20-30 ng/mL Insufficient > 30 ng/mL Sufficient *Julio DOTY. N Engl J Med. 2007;357:266-280 There is no well-established upper level of normal vitamin D levels. Some laboratories use 50 ng/mL as an upper limit of normal. However, toxicity is patient-dependent and may occur at any level. Careful correlation with the patient's presentation is necessary and, if there is concern for vitamin D toxicity, treatment should be considered irrespective of the serum level. Care must be taken in interpreting Vitamin [...] confirmed with another method such as LC-MS/MS. URINE DIP STICK Reviewed date:08/05/2024 02:27:54 PM Interpretation: Performing Lab: Notes/Report: SG 1.015 1.005 - 1.025 pH 6.0 5.0 - 9.0 GENOVEVA 70 + Negative - NIT Negative Negative - PRO 15 Negative - Trace GLU 1 Negative - KET Negative Negative - UBG 0.2 0.1 - 1.8 MIGUEL ANGEL 1 0.2 - 1.3 BLD 50 Negative - Reason For Referral No Information Medications Medication SIG (Take, Route, Frequency, Duration) Notes Start Date End Date Status Atenolol 100 MG TAKE 1 TABLET TWICE A DAY Active Triamterene-HCTZ 37.5-25 MG TAKE 1 CAPSU LE DAILY IN THEMORNING Active Atorvastatin Calcium 40 MG TAKE 1 TABLET ONCE DAILY Active Immunizations Vaccine Route Administration Date Status [...] Problem Status W/U Status Risk Notes Problem 013499760 Underweight (R63.6) Active confirmed She weighs 117 pounds having lost 3. Her BMI is 17. She seems healthy and well with good nutrition. Problem 756436510 Mixed hyperlipidemia (E78.2) Active confirmed Her lipids are well controlled and no change in her regimen as necessary. Problem 986563987 Acquired absence of both cervix and uterus (Z90.710) Active confirmed She declined a PENSION ADVISER referral, pelvic exam, rectal exam and breast examination colonoscopy or cologard today. 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 She is free of any symptoms. Problem 57752794 Essential hypertension (I10) Active confirmed Her blood pressure is stable in the normal range and no change in her therapy was needed. Problem Glaucoma (07293436) Glaucoma (H40.9) Active confirmed Problem 38744961 Vitamin D deficiency (E55.9) Active confirmed Her level is 156. Her calcium is normal. I recommended a dose of 1000 units daily. Problem 757997372 Macrocytosis (D75.89) Active confirmed Her mean cell volume remains slightly elevated. We will continue to observe this. Her hematocrit is normal. Vital Signs Heart Rate 63 /min 08/27/2024 Temperature 97.2 degrees Fahrenheit 08/27/2024 Blood pressure diastolic 74 mm Hg 08/27/2024 Height 65 in 08/27/2024 Blood pressure systolic 139 mm Hg 08/27/2024 Weight 117 lbs 08/27/2024 BMI 19.47 kg/m2 08/27/2024 Encounters Encounter Location Date Provider Diagnosis Yung Delgado III, MD [address] [place] [address] [place] [address] 11/15/2023 Yung Delgado Mixed hyperlipidemia E78.2 ; Vitamin D deficiency E55.9 ; Essential hypertension I10 ; Underweight R63.6 and Osteopenia, unspecified location M85.80 Yung Delgado III, MD [address] [place] [address] [address] [place] [address] 08/05/2024 Yung Delgado Essential hypertensi on I10 ; Mixed hyperlipidemia E78.2 ; Underweight R63.6 and Macrocytosis D75.89 Yung Delgado III, MD [address] [place] [address] [address] [place] [address] 08/27/2024 Yung Delgado Mixed hyperlipidemia E78.2 ; [...] E55.9) She will continue on vitamin D. 08/05/2024 Mixed hyperlipidemia (ICD-10 - E78.2) Her lipids are currently stable. Her body mass index is 19. We discussed her diet at length today. 08/05/2024 Essential hypertension (ICD-10 - I10) Her blood pressure is stable in the normal range and no change in her therapy was needed. 08/27/2024 Underweight (ICD-10 - R63.6) She weighs 117 pounds having lost 3. Her BMI is 17. She seems healthy and well with good nutrition. 08/27/2024 Mixed hyperlipidemia (ICD-10 - E78.2) Her lipids are well controlled and no change in her regimen as necessary. 11/15/2023 Essential hypertension (ICD-10 - I10) Her blood pressure is stable in the normal range and no change in her therapy was needed. 08/05/2024 Underweight (ICD-10 - R63.6) Her body mass index is now 19. Her nutrition seems good.We discussed her diet at length today. 08/27/2024 Vitamin D deficiency (ICD-10 - E55.9) Her level is 156. Her calcium is normal. I recommended a dose of 1000 units daily. 11/15/2023 Underweight (ICD-10 - R63.6) Her body mass index is now 19. Her nutrition seems good.We discussed her diet at length today. 08/05/2024 Macrocytosis (ICD-10 - D75.89) Her mean cell volume is slightly elevated at 101.6. This value will be followed. If necessary will be investigated with a reticulocyte count, B12 and folic acid. 08/27/2024 Macrocytosis (ICD-10 - D75.89) Her mean cell volume remains slightly elevated. We will continue to observe this. Her hematocrit is normal. 11/15/2023 Osteopenia, unspecified location (ICD-10 - M85.80) She is taking vitamin D and calcium tablets twice a day. 08/27/2024 Essential hypertension (ICD-10 - I10) Her blood pressure is stable in the normal range and no change in her therapy was needed. 08/27/2024 Acquired absence of both cervix and uterus (ICD-10 - Z90.710) She declined a PENSION ADVISER referral, pelvic exam, rectal exam and breast examination colonoscopy or cologard today. Plan Of Treatment Pending Test Test Name Order Date PROFILE, FASTING (COMPREHENSIVE METABOLI C) 07/20/2020 PROFILE, FASTING (COMPREHENSIVE METABOLI C) 08/27/2024 PROFILE, FASTING (COMPREHENSIVE METABOLI C) 07/29/2021 PROFILE, [...] CBC w DIFF 10/26/2022 CBC w DIFF 08/27/2024 CBC w DIFF 08/01/2019 CBC w DIFF 07/29/2021 CBC w DIFF 07/20/2020 CBC w DIFF 08/01/2023 CBC w DIFF 08/03/2022 CBC w DIFF 10/05/2018 CBC w DIFF 11/26/2019 CBC w DIFF 10/28/2020 BONE DENSITY DEXA 08/01/2023 CBC WITH AUTO DIFF 11/15/2023 Lipid Panel 08/27/2024 Lipid Panel 07/29/2021 Lipid Panel 11/15/2023 Lipid Panel 08/01/2023 Vitamin D 25-OH Total 08/27/2024 Vitamin D 25-OH Total 11/15/2023 Vitamin D 25-OH Total 08/01/2023 Next Appt Details Provider Name:Yung Delgado, 11/01/2024 10:45:00 AM, [address] [place] [address] [address], [place], [address], Provider Name:Yung Delgado, 08/06/2025 02:30:00 PM, [address] [place] [address] [address], [place], [phone], Insurance Providers Payer Name Payer Address Payer Phone Subscriber Number Group Number Insured Name Patient Relationship to Insured Coverage Start Date Coverage End Date MEDICARE NGS [address] [place] [phone] [id number] Dyan Wang Self - patient is the insured [employer] ([facility]) [address] [place] [id number] Dyan Wang Self - patient is the insured Medical (General) History Medical History History ICD Code HTN (hypertension) I10 Hypercholesterolemia E78.00 hysterectomy for pain. 2001 , benign dis ease history of benign breast biopsy Surgical History Surgery Date(Month/Year) breast biopsy for benign disease Hysterectomy left inguinal hernia repair Tonsillectomy
[2024-10-22 13:20] LABS: MANUAL DIFF FLAG NO
[2024-10-22 13:25] LABS: Hematocrit 42.3 % (37.0-47.0); Hemoglobin 13.9 g/dl (12.0-16.0); Imm Gran Abs Auto 0.02 X10*3/uL (0.00-0.03); Imm Gran Pct Auto 0.3 % (0.0-0.4); Lymphocytes Absolute Auto 1.9 X10*3/uL (1.2-4.9); Mean Corpuscular HGB Conc 32.9 g/dl (31.0-35.0); Mean Corpuscular Hemoglobin 33.3 pg (27.0-33.0); Mean Corpuscular Volume 101.2 fL (80.0-98.0); NRBC Abs Auto 0.000 X10*3/uL (0.0-0.012); NRBC Pct Auto 0.0 /100WBC (0.0-0.2); Platelet Count 273 X10*3/uL (160-400); Red Blood Count 4.18 X10*6/uL (4.20-5.50); White Blood Count 7.4 X10*3/uL (4.8-10.8)
[2024-10-22 14:01] LABS: Alanine Aminotransferase 28 U/L (0-31); Albumin Level 4.4 g/dL (3.5-5.0); Alkaline Phosphatase 76 U/L (39-117); Anion Gap 12 (12-20); Aspartate Amino Transferase 34 U/L (5-31); Blood Urea Nitrogen 18 mg/dL (9-16); Calcium 9.3 mg/dL (8.4-10.2); Carbon Dioxide 29 mmol/L (22-29); Chloride 104 mmol/L (96-108); Cholesterol 181 mg/dL (<200); Estimated Glomerular Filt Rate > 60; HDL Cholesterol 72 mg/dL (>40); Potassium 3.4 mmol/L (3.3-5.1); Sodium 142 mmol/L (135-145); Total Protein 7.2 g/dL (6.5-8.0); Triglycerides 120 mg/dL (<150)
== END 2024-10-22 09:47 | disposition home or self-care (01) ==
LOC: HO.HMGCLDS 09:46
PROVIDERS: PCP Internal Medicine Medical Oncology; Visit Provider Internal Medicine Medical Oncology
DX: E78.2 Mixed hyperlipidemia (principal); E55.9 Vitamin D deficiency, unspecified; D75.89 Other specified diseases of blood and blood-forming organs; R63.6 Underweight
CPT/HCPCS: 36415; 80053; 80061; 82306; 85025